=== PATIENT | male | born 1960 | race Hispanic/Latino ===

== ENCOUNTER 2018-03-02 17:19 | Emergency (ER) | payer BC | END 2018-03-02 17:40 | disposition short-term general hospital (02) | LOC: ER 17:19 | DX: Z95.1 Presence of aortocoronary bypass graft (principal) ==

== ENCOUNTER 2018-05-06 19:33 | Emergency (ER) | payer BC ==
[~2018-05-06] VITALS: Ht 170.2 cm; Wt 86.2 kg
[2018-05-06] MEDS ORDERED: PHENYLEPHRINE HCL 1% NA SPR 15 ML BTL ONE ×2 (19:41→19:45)
[2018-05-06 20:09] LABS: BASOPHILS # (AUTO) 0.1 (0.0-0.1); EOSINOPHILS # (AUTO) 0.4 (0.0-0.4); EOSINOPHILS % 3.4 % (0.0-6.0); HEMATOCRIT 38.4 % (38.2-49.6); HEMOGLOBIN 12.8 g/dL (14.0-18.0); LYMPHOCYTES # (AUTO) 4.7 (1.0-3.2); LYMPHOCYTES % 41.4 % (18.0-39.1); MEAN CORPUSCULAR HGB CONC 33.3 g/dL (31-35); MEAN CORPUSCULAR VOLUME 89.9 fL (81-99); MONOCYTES # (AUTO) 0.9 (0.2-0.8); MONOCYTES % 7.8 % (4.4-11.3); NEUTROPHILS # (AUTO) 5.3 (2.1-6.9); NEUTROPHILS % 46.2 % (38.7-80.0); PLATELET COUNT 211 x10e3/uL (140-360); RED BLOOD COUNT 4.27 x10e6/uL (4.3-5.7); RED CELL DISTRIBUTION WIDTH 13.8 % (11.7-14.4)
[2018-05-06 20:18] LABS: INR 1.15; PARTIAL THROMBOPLASTIN TIME 26.2 seconds (23.8-35.5); PROTHROMBIN TIME 13.8 seconds (11.9-14.5)
[2018-05-06 20:28] LABS: ALANINE AMINOTRANSFERASE 43 IU/L (0-55); ALBUMIN 3.9 g/dL (3.5-5.0); ALBUMIN/GLOBULIN RATIO 0.9 (0.8-2.0); ALKALINE PHOSPHATASE 104 IU/L (40-150); ANION GAP 16.9 mmol/L (8-16); BLOOD UREA NITROGEN 8 mg/dL (7-26); BUN/CREATININE RATIO 12 (6-25); CALCIUM 9.4 mg/dL (8.4-10.2); CARBON DIOXIDE 18 mmol/L (22-29); CHLORIDE 108 mmol/L (98-107); CREATINE KINASE 70 IU/L (30-200); CREATININE, SERUM 0.69 mg/dL (0.72-1.25); EST GLOMERULAR FILTRATION RATE > 60 ML/MIN (60-); GLUCOSE 97 mg/dL (74-118); POTASSIUM 3.9 mmol/L (3.5-5.1); SODIUM 139 mmol/L (136-145)
[2018-05-06] MEDS ORDERED: POTASSIUM40 MEQ/15 PO (20:40)
[2018-05-06] MEDS ORDERED: TYLENOL WITH C1 EACH PO (20:40)
[2018-05-06] MEDS ORDERED: ATORVASTATIN CA20 MG PO (20:40)
[2018-05-06] MEDS ORDERED: LISINOPRIL2.5 MG PO (20:40)
[2018-05-06] MEDS ORDERED: ULTRAM 50MG50 MG PO (20:40)
[2018-05-06] MEDS ORDERED: ASPIR 8181 MG PO (20:40)
[2018-05-06] MEDS ORDERED: CLOPIDOGREL75 MG PO (20:40)
[2018-05-06] MEDS ORDERED: METOPROLOL TART50 MG PO (20:40)
[2018-05-06] MEDS ORDERED: FUROSEMIDE40 MG PO (20:40)
[2018-05-06] MEDS ORDERED: PANTOPRAZOLE SO40 MG PO (20:40)
[2018-05-06] MEDS ORDERED: BACITRACIN ZINC 0.9GM TP ONE (21:09)
[2018-05-06 21:39] LABS: HEMATOCRIT 37.4 % (38.2-49.6); HEMOGLOBIN 12.9 g/dL (14.0-18.0)
[2018-05-06 22:39] VITALS: BP 125/71
== END 2018-05-06 22:41 | disposition other institution (70) ==
LOC: ER 19:33
DX: R04.0 Epistaxis (principal); I10 Essential (primary) hypertension; E78.5 Hyperlipidemia, unspecified; Z79.82 Long term (current) use of aspirin; Z79.01 Long term (current) use of anticoagulants; Z95.1 Presence of aortocoronary bypass graft
CPT/HCPCS: 36415; 80053; 80320; 82550; 82553; 84484; 85014; 85018; 85025; 85610; 85730; 86850; 86900; 93005; 99284

== ENCOUNTER → 2020-06-09 | Day surgery (SDC) | payer OTHER ==
[2020-05-15 15:48] LABS: BASOPHILS # (AUTO) 0.1 (0.0-0.1); BASOPHILS % 1.2 % (0.0-1.0); EOSINOPHILS # (AUTO) 0.3 (0.0-0.4); EOSINOPHILS % 3.4 % (0.0-6.0); HEMOGLOBIN 13.6 g/dL (14.0-18.0); LYMPHOCYTES # (AUTO) 2.5 (1.0-3.2); LYMPHOCYTES % 29.8 % (18.0-39.1); MEAN CORPUSCULAR HEMOGLOBIN 33.5 pg (28-32); MEAN CORPUSCULAR HGB CONC 33.2 g/dL (31-35); MONOCYTES % 11.8 % (4.4-11.3); NEUTROPHILS # (AUTO) 4.4 (2.1-6.9); NEUTROPHILS % 53.6 % (38.7-80.0); PLATELET COUNT 105 x10e3/uL (140-360); RED BLOOD COUNT 4.06 x10e6/uL (4.3-5.7); RED CELL DISTRIBUTION WIDTH 16.2 % (11.7-14.4)
[~2020-06-09] MED LIST: ASPIR 8181 MG PO; ATORVASTATIN CA20 MG PO; BENICAR20 MG PO; CLOPIDOGREL75 MG PO; ETOMIDATE 2 MG/ML 10 ML INJ IV ONE; FUROSEMIDE40 MG PO; HYOSCYAMINE 0.125 MG TAB ONE; LIDOCAINE HCL 2% LOCAL INJ 5 ML SDV VIAL INJ ONE; LISINOPRIL2.5 MG PO; METOPROLOL TART50 MG PO; PANTOPRAZOLE SO40 MG PO; POTASSIUM40 MEQ/15 PO; PROPOFOL IV EMULSION 10 MG/ML 20 ML VIAL ONE; TYLENOL WITH C1 EACH PO; ULTRAM 50MG50 MG PO
[2020-06-09 15:35] VITALS: BP 139/87
[2020-06-09 16:05] LABS: BASOPHILS # (AUTO) 0.1 (0.0-0.1); EOSINOPHILS # (AUTO) 0.2 (0.0-0.4); EOSINOPHILS % 3.4 % (0.0-6.0); HEMATOCRIT 39.6 % (38.2-49.6); HEMOGLOBIN 13.1 g/dL (14.0-18.0); LYMPHOCYTES # (AUTO) 2.1 (1.0-3.2); LYMPHOCYTES % 33.9 % (18.0-39.1); MEAN CORPUSCULAR HEMOGLOBIN 33.9 pg (28-32); MEAN CORPUSCULAR HGB CONC 33.1 g/dL (31-35); MEAN CORPUSCULAR VOLUME 102.3 fL (81-99); MONOCYTES # (AUTO) 0.6 (0.2-0.8); MONOCYTES % 9.2 % (4.4-11.3); NEUTROPHILS # (AUTO) 3.2 (2.1-6.9); NEUTROPHILS % 52.3 % (38.7-80.0); PLATELET COUNT 103 x10e3/uL (140-360); RED BLOOD COUNT 3.87 x10e6/uL (4.3-5.7)
[2020-06-09 16:28] LABS: ALANINE AMINOTRANSFERASE 115 IU/L (0-55); ALBUMIN 2.9 g/dL (3.5-5.0); ALBUMIN/GLOBULIN RATIO 0.6 (0.8-2.0); ALKALINE PHOSPHATASE 128 IU/L (40-150); ANION GAP 13.6 mmol/L (8-16); BLOOD UREA NITROGEN 11 mg/dL (7-26); BUN/CREATININE RATIO 15 (6-25); CALCIUM 8.7 mg/dL (8.4-10.2); CARBON DIOXIDE 22 mmol/L (22-29); CHLORIDE 110 mmol/L (98-107); CREATININE, SERUM 0.75 mg/dL (0.72-1.25); EST GLOMERULAR FILTRATION RATE > 60 ML/MIN (60-); GLUCOSE 123 mg/dL (74-118); POTASSIUM 4.6 mmol/L (3.5-5.1); SODIUM 141 mmol/L (136-145)
--- NOTE | 2020-06-09 16:39 | Operative Report ---
DATE OF PROCEDURE: 06/09/2020 SURGEON: Adis Castellano MD PROCEDURE: Colonoscopy with polypectomy. INDICATIONS FOR COLONOSCOPY: Colorectal cancer screening. MEDICATIONS: The patient was done under MAC, please see anesthesiologist's note. PROCEDURE IN DETAIL: With the patient in left lateral decubitus position, a flexible fiberoptic Olympus colonoscope was inserted into the rectum with ease and advanced all the way to the cecum. An approximately 8 mm sessile polyp was noted in the cecal pouch, that was removed per hot snare polypectomy and site was hemoclipped x2. The scope was then withdrawn slowly and two polyps in the proximal ascending colon each about 1 cm in size, both were sessile, there were removed per hot snare polypectomy and polypectomy sites were hemoclipped. The rest of the ascending and the transverse appeared to be within normal limits. In the descending colon 4 polyps were hot biopsied and one polyp was hot snared. In the sigmoid colon 3 polyps were hot biopsied, one approximately 1 cm polyp, sessile was removed per hot snare polypectomy and site was hemoclipped x2. Three minute polyps were hot biopsied from the proximal rectum. There was a nodular raised area in the distal rectum and that was hot biopsied. The scope was then retroflexed into the distal rectum and moderate-sized internal hemorrhoids were noted, none of which was actively bleeding. The scope was then straightened out, it was subsequently withdrawn. The patient tolerated the procedure well. IMPRESSION: 1. Cecal polyp approximately 8 mm in size, sessile, hot snared and site hemoclipped x2. 2. Ascending colon polyps x2, 1 cm in size, a piece sessile, both removed per hot snare polypectomy and both polypectomy sites were hemoclipped. 3. Descending colon, 4 polyps were hot biopsied, and one polyp was hot snared. 4. In the sigmoid colon, 3 polyps were hot biopsied and one polyp was hot snared, and site was hemoclipped x2. 5. Rectum, three polyps, hot biopsied. Raised focal nodular area, distal rectum, hot biopsied. 6. Internal hemorrhoids, none actively bleeding. PLAN: 1. Follow up histology. 2. Initiate high-fiber, low-fat diet. 3. Initiate high-fiber supplement. 4. A total of 15 polyps were removed. 5. The patient will need a followup colonoscopy in 1 year. MD SARAH Lemon/HANNYL /[id number] cc: Gadiel Cox DO
== END | disposition home or self-care (01) ==
LOC: OR 10:43
PROVIDERS: ATTEND Internal Medicine Gastroenterology
DX: Z12.11 Encounter for screening for malignant neoplasm of colon (principal); D12.0 Benign neoplasm of cecum; D12.2 Benign neoplasm of ascending colon; K62.1 Rectal polyp; K62.89 Other specified diseases of anus and rectum; K64.8 Other hemorrhoids; K21.9 Gastro-esophageal reflux disease without esophagitis; I10 Essential (primary) hypertension; I25.810 Atherosclerosis of coronary artery bypass graft(s) without angina pectoris; E78.2 Mixed hyperlipidemia; Z72.0 Tobacco use; Z01.810 Encounter for preprocedural cardiovascular examination; Z01.812 Encounter for preprocedural laboratory examination; Z11.59 Encounter for screening for other viral diseases; Z79.02 Long term (current) use of antithrombotics/antiplatelets; Z79.82 Long term (current) use of aspirin; Z68.32 Body mass index [BMI] 32.0-32.9, adult; Z86.19 Personal history of other infectious and parasitic diseases; Z95.1 Presence of aortocoronary bypass graft
CPT/HCPCS: 36415; 45378; 45384; 45385; 80053; 85025; 93005; J2001; U0002

== ENCOUNTER 2020-06-16 13:32 | Inpatient (IN) | payer OTHER ==
[~2020-06-16] VITALS: Ht 170.2 cm; Wt 91.6 kg
[~2020-06-16 13:32] MED LIST changes: -ETOMIDATE 2 MG/ML 10 ML INJ IV ONE; -HYOSCYAMINE 0.125 MG TAB ONE; -LIDOCAINE HCL 2% LOCAL INJ 5 ML SDV VIAL INJ ONE; -PROPOFOL IV EMULSION 10 MG/ML 20 ML VIAL ONE
[2020-06-16] MEDS ORDERED: SODIUM CHLORIDE 0.9% 1000ML 1,000 ML IV STA (13:55)
[2020-06-16] MEDS ORDERED: PANTOPRAZOLE 40 MG 10ML VIAL IV STA (13:55)
[2020-06-16] MEDS ORDERED: ONDANSETRON HCL INJ 2MG/ML 2ML 2 MG/ML VIAL IV ONE (14:00)
[2020-06-16] MEDS ORDERED: FUROSEMIDE INJ 10 MG/ML 2 ML VIAL IV ONE ×2 (14:00→22:30)
[2020-06-16] MEDS ORDERED: DIPHENHYDRAMINE HCL INJ 50 MG/ML VIAL IV ONE ×2 (14:00→22:30)
[2020-06-16] MEDS ORDERED: ACETAMINOPHEN 325 MG TAB PO ONE ×2 (14:00→22:30)
--- NOTE | 2020-06-16 14:07 | Emergency Department Note ---
History of Present Illnes History of Present Illness Chief Complaint: General Medicine Complaints History of Present Illness This is a 59 year old male on Plavix, c/p colonoscopy 7 days ago c/o BRBPR, look pales, BP 95/51 on arrival. He had many polyps removal during the colonoscopy. He took one dose of Plavix yesterday Past Medical History Hypertension, Hyperlipedemia Past Surgical History: Appendectomy, CABG Other Surgery FOOT SX Arrival Mode: Car Emergency Room Rn Required: No Onset (how long ago): hour(s) Radiation: Reports non-radiation Severity: moderate Onset quality: sudden Duration (how long): hour(s) Timing of current episode: intermittent Progression: waxing and waning Chronicity: new Relieving factors: none Exacerbating factors: none Associated symptoms: Reports other Treatments prior to arrival: none Past Medical/Family History Physician Review I have reviewed the patient's past medical and family history. Any updates have been documented here. Past Medical History Recent Fever: No Clinical Suspicion of Infectio: No New/Unexplained Change in Ment: No Past Medical History: Hypertension, Hyperlipedemia Other Medical History: Past Medical History Hypertension, Hyperlipedemia Past Surgical History: Appendectomy, CABG Other Surgery FOOT SX Past Surgical History: Appendectomy, CABG Other Surgery: FOOT SX Social History Smoking Cessation: Never Smoker Counseling Performed: No Alcohol Use: Social Any Illegal Drug Use: No TB Exposure/Symptoms: No Physically hurt or threatened: No Family History Family history of heart diseas: No Other Last Tetanus: UTD Review of Systems Review of Systems Constitutional: Reports no symptoms EENTM: Reports no symptoms Cardiovascular: Reports no symptoms Respiratory: Reports no symptoms Gastrointestinal: Reports as per HPI Genitourinary: Reports no symptoms Musculoskeletal: Reports no symptoms Integumentary: Reports no symptoms Neurological: Reports weakness Psychological: Reports no symptoms Endocrine: Reports no symptoms Hematological/Lymphatic: Reports no symptoms Physical Exam Related Data Allergies: Coded Allergies: No Known Allergies (Unverified , 05/06/18) Physical Exam CONSTITUTIONAL Constitutional: Present well-developed, Present well-nourished, Present diaphoretic, Present other (looks pale) HENT HENT: Present normocephalic, Present atraumatic, Present oropharynx clear/moist, Present nose normal HENT L/R: Present left ext ear normal, Present right ext ear normal EYES Eyes: Reports PERRL, Reports conjunctivae normal NECK Neck: Present ROM normal PULMONARY Pulmonary: Present effort normal, Present breath sounds normal CARDIOVASCULAR Cardiovascular: Present regular rhythm, Present heart sounds normal, Present capillary refill normal, Present normal rate GASTROINTESTINAL Abdominal: Present soft, Present nontender, Present bowel sounds normal, Present other (rectal exam: red frothy stool, positive blood. ) GENITOURINARY Genitourinary: Present exam deferred SKIN Skin: Present warm, Present dry MUSCULOSKELETAL Musculoskeletal: Present ROM normal NEUROLOGICAL Neurological: Present alert, Present oriented x 3, Present no gross motor or sensory deficits PSYCHOLOGICAL Psychological: Present mood/affect normal, Present judgement normal Results Laboratory Laboratory HGB 8.9 Lab results reviewed: Yes Critical Care Time Total Critical Care Time (min): 45 Time ED Physician saw patient: 14:05 Critical care time exclusive o: treating other patients Critcal care necessary due to: shock, other (CC for acute lower GI bleeding with hypovolemic shock, tx with IV fluid, PPI blood transfusion. ) Critcal care time spent by me: develop tx plan w patient/surrogate, discussion w consultants, discussion w primary provider, evaluation patient response to tx, examination of patient, obtaining hx from patient/surrogate, order/perform tx or interventions, order/review laboratory studies, pulse oximetry, review of old charts Assessment & Plan Medical Decision Making MDM post polypectomy bleeding. hypovolemic shock due to excessive bleeding. Reassessment Reassessment time: 15:36 Reassessment still bleeding on the toilet Assessment & Plan Final Impression: (1) Hemorrhagic shock (2) Anemia due to acute blood loss (3) Lower GI hemorrhage Depart Disposition: ADMITTED Home Meds Reported Medications Olmesartan Medoxomil (BENICAR) 20 Mg Tablet, 5 MG PO DAILY, #30 TAB 05/12/20 Pantoprazole Sodium* (PROTONIX) 40 Mg Tablet.dr, 40 MG PO DAILY, TAB 05/06/18 Clopidogrel Bisulfate (CLOPIDOGREL) 75 Mg Tablet, 75 MG PO DAILY, #30 TAB 05/06/18 Atorvastatin Calcium (ATORVASTATIN CALCIUM) 20 Mg Tablet, 40 MG PO HS, #30 TAB 05/06/18 Aspirin (ASPIR 81) 81 Mg Tablet.dr, 81 MG PO DAILY 05/06/18 Metoprolol Tartrate (METOPROLOL TARTRATE) 50 Mg Tablet, 25 MG PO DAILY, TAB 05/06/18 Medications in the ED Ondansetron HCl 4 mg ONCE ONCE IV ; Start 06/16/20 at 14:00; Stop 06/16/20 at 14:01 Pantoprazole Sodium 40 mg NOW STAT IV ; Start 06/16/20 at 13:55; Stop 06/16/20 at 13:56 Sodium Chloride 1,000 ml @ 0 mls/hr Q0M STAT IV ; Start 06/16/20 at 13:55; Stop 06/16/20 at 14:00; Status DC Acetaminophen 650 mg ONCE ONCE PO ; Start 06/16/20 at 14:00; Stop 06/16/20 at 14:01 Diphenhydramine HCl 25 mg NOW ONCE IV ; Start 06/16/20 at 14:00; Stop 06/16/20 at 14:01; Status UNV Furosemide 20 mg ONCE ONCE IV ; Start 06/16/20 at 14:00; Stop 06/16/20 at 14:01; Status UNV Physician Attestation Provider Attestation Case discussed with Dr Misti Alves and Dr Bing Castellano. Dr Bing Castellano asked for GS Dr Karan Black consult. RYANNE MYLES MD Jun 16, 2020 14:07
[2020-06-16] MEDS ORDERED: SODIUM CHLORIDE 0.9% 1000ML 1,000 ML ONE (14:23)
[2020-06-16] MEDS ORDERED: PANTOPRAZOL 40MG/SOD CHL 0.9% 50 ML IV ONE (14:23)
[2020-06-16] MEDS ORDERED: ONDANSETRON HCL INJ 2MG/ML 2ML 2 MG/ML VIAL ONE (14:23)
--- OUTSIDE RECORDS SUMMARY | 2020-06-16 15:12 | XMS REPORT | Continuity of Care Document ---
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 coronary artery showed a small vessel that is not suitable for bypass. At that point, the first diagonal coronary artery was identified and opened longitudinally. The vessel was noted to be suitable for bypass admitting a 1.5mm dilator. A saphenous vein segment was fashioned end-to side to the arteriotomy made in this vessel and the anastomosis was completed using a running # 7/0 Prolene suture. Following the completion of this anastomosis, the left anterior descending coronary artery was identified and opened. The vessel was noted to be suitable for bypass admitting a 1.5mm dilator. The left internal mammary artery was fashioned end-to side to the arteriotomy made in the left anterior descending coronary artery and the anastomosis was completed using a running # 8/0 Prolene suture. One small aortotomy was made in the ascending aorta to which the saphenous vein graft to the first diagonal coronary artery was sutured in an end-to-side fashion using a running # 6/0 Prolene suture. The heart chambers were filled with blood. Any potential air was evacuated via the antegrade aortic cardioplegia cannula. The patient was placed in the head-down position and the aortic cross-clamp released. The heart was defibrillated to a normal sinus rhythm. Having demonstrated satisfactory rate and rhythm the head was slowly elevated to the horizontal position. Rewarming continued to a nasopharyngeal and bladder temperature of 36.0C. After demonstrating satisfactory blood pressure, rhythm and heart rate the patient was weaned from cardiopulmonary bypass. The aortic and vena caval cannulae were removed. Protamine sulfate was administered to rev erse the anti-coagulated state. Temporary epicardial pacing wires were placed on the right ventricular outflow tract. One #40 chest tube was placed in the mediastinum and one # 28 right angle chest tube was placed in the left pleural space for drainage. The chest was closed with interrupted #6 stainless steel surgical wires on the sternum, running #l PDS plus on the muscular fascia and running # 3/0 Monocryl suture for the skin. The patient tolerated the procedure well, was extubated in the operating room and was taken to the ICU in stable condition. Sponge, needle and instrument counts x4 were correct. I was present for all elements of this operation that included performing all distal and proximal anastomoses of the coronary arteries, including the left internal mammary artery to the left anterior descending coronary arteries. I weaned the patient from cardiopulmonary bypass and closed the incision. Elmer Rockwell M.D. Extracted from:Title: [facility] ICU Addendum Author: Dallin Awan MD Date: 02/21/18 Impression and Plan Extracted from:Title: [facility] STS Heart Surgery Admission H&P Note Author: Dexter Marie MD Date: 02/20/18 Impression and Plan 57M with stemi OSH s/p cath transfferd f or CABG - plan for cabg with Dr. Rockwell in AM - NPO labs CXR consent in chart booked. STS Calculated Risk Score: Refer to: http://riskcalc.sts.org/ Does this patient meet criteria for Multidisciplinary Conference (STS Risk Score >4%): _ Yes _ No _ N/A 02/26/2018 [facility] Plan of Care No Data Provided for This Section Social History Social History Date Source Social History TypeResponse Alcohol Current, Type Beer. Frequency: 3-5 times per week. Previous treatment: None. Alcohol use interferes with work or home: No. Drinks more than intended: No. Others hurt by drinking: No. Ready to change: No. Household alcohol concerns: No. Smoking Status Current every day smoker; Type: Cigarettes; Previous treatment: None; Ready to change: Yes; Concerns about tobacco use in household: Yes; Exposure to Tobacco Smoke None; Exposed at work; Lives with someone who smokes; Cigarette Smoking Last 365 Days Yes; Reg Smoking Cessation Counseling Yes; Number of years: 45; Total pack years: 170; Started at age: 13.0; Stopped at age: 57; entered on: 02/22/18 02/21/2018 [facility] Social History TypeResponse Alcohol Current, Type Beer. Frequency: 3-5 times per week. Previous treatment: None. Alcohol use interferes with work or home: No. Drinks more than intended: No. Others hurt by drinking: No. Ready to change: No. Household alcohol concerns: No. Smoking Status Current every day smoker; Type: Cigarettes; Previous treatment: None; Ready to change: Yes; Concerns about tobacco use in household: Yes; Exposure to Tobacco Smoke None; Exposed at work; Lives with someone who smokes; Cigarette Smoking Last 365 Days Yes; Reg Smoking Cessation Counseling Yes; Number of years: 45; Total pack years: 170; Started at age: 13.0; Stopped at age: 57; entered on: 12/27/18 02/21/[address] [facility] Social History TypeResponse Alcohol Current, Type Beer. Frequency: 3-5 times per week. Previous treatment: None. Alcohol use interferes with work or home: No. Drinks more than intended: No. Others hurt by drinking: No. Ready to change: No. Household alcohol concerns: No. Smoking Status Current every day smoker; Type: Cigarettes; Previous treatment: None; Ready to change: Yes; Concerns about tobacco use in household: Yes; Exposure to Tobacco Smoke None; Exposed at work; Lives with someone who smokes; Cigarette Smoking Last 365 Days Yes; Reg Smoking Cessation Counseling Yes; Number of years: 45; Total pack years: 170; Started at age: 13.0; Stopped at age: 57; entered on: 02/22/18 02/21/2018 [facility] Family History No Data Provided for This Section Advance Directives No Data Provided for This Section Functional Status No Data Provided for This Section
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
--- OUTSIDE RECORDS SUMMARY | 2020-06-16 15:13 | XMS REPORT | Summary of Care ---
Author Author [facility] Organization [facility] Address Unknown Phone Unavailable Encounter JAY Moon(PAUL) [id number] Date(s): 02/20/18 - 02/20/18 [facility] [address] [place] [address]- [phone] Discharge Disposition: Other Healthcare Facility Attending Physician: Jose A Cox DO Admitting Physician: Jose A Cox DO Vital Signs 1 2 3 Most recent to oldest [Reference Range]: 170.18 cm (02/20/18 3:06 PM) 170.18 cm (02/20/18 10:35 AM) Height 98 DegF (02/20/18 8:00 PM) 97.7 DegF (02/20/18 3:17 PM) 97.9 DegF (02/20/18 2:15 PM) Temperature Oral [96.4-99.1 DegF] 134/93 mmHg (02/20/18 9:00 PM) 134/93 mmHg (02/20/18 8:45 PM) 147/94 mmHg *HI* (02/20/18 8:30 PM) Blood Pressure [90-140/60-90 mmHg] 12 BRMIN *LOW* (02/20/18 9:34 PM) 11 BRMIN *LOW* (02/20/18 9:00 PM) 13 BRMIN *LOW* (02/20/18 8:45 PM) Respiratory Rate [14-20 BRMIN] 88 bpm (02/20/18 10:35 AM) Peripheral Pulse Rate [60-100 bpm] 92.1 kg (02/20/18 3:06 PM) 98.3 kg (02/20/18 10:35 AM) Weight 31.8 m2 (02/20/18 3:06 PM) 33.94 m2 (02/20/18 10:35 AM) Body Mass Index Problem List No data available for this section Allergies, Adverse Reactions, Alerts Substance Reaction Severity Status NKDA Active Medications acetaminophen 650 mg, 2 tab, Route: PO, Drug form: TAB, Q4H, Dosing Weight 92.1, kg, PRN Pain Score 1-3, Start date: 02/20/18 18:32:00 CDT, Duration: 30 day, Stop date: 03/22 18:31:00 CDT Notes: Do not exceed 4 gm/day. (Same as: Tylenol) Start Date: 02/20/18 Stop Date: 02/20/18 Status: Discontinued acetaminophen-hydrocodone 325 mg-5 mg oral tablet 1 tab, Route: PO, Drug Form: TAB, Dosing Weight 92.1, kg, Q4H, PRN Pain Score 4- 6, Start date: 02/20/18 18:32:00 CDT, Duration: 30 day, Stop date: 03/22/18 18:3 1:00 CDT Notes: (Same as: [place] 325/5) Do not exceed 4gm/day of acetaminophen. Start Date: 02/20/18 Stop Date: 02/20/18 Status: Discontinued aspirin 324 mg, 4 tab, Route: CHEW, Drug form: CHEWTAB, ONCE, Dosing Weight 98.3, kg, Pr iority: STAT, Start date: 02/20/18 10:49:00 CDT, Stop date: 02/20/18 10:49:00 CD T Notes: Take with food. Start Date: 02/20/18 Stop Date: 02/20/18 Status: Completed aspirin 81 mg tablet, enteric coated 81 mg, 1 tab, Route: PO, Drug form: ECTAB, Daily, Dosing Weight 92.1, kg, Start date: 02/21/18 9:00:00 CDT, Duration: 30 day, Stop date: 03/22/18 9:00:00 CDT Notes: Do not crush or chew.(Same As: Ecotrin) Start Date: 02/21/18 Stop Date: 02/20/18 Status: Canceled Heparin - one time bolus for ACS 4,000 unit, 4 mL, Route: IVP, Drug form: INJ, ONCE, Dosing Weight 98.3, kg, Prio rity: STAT, Start date: 02/20/18 11:47:00 CDT, Stop date: 02/20/18 11:47:00 CDT Start Date: 02/20/18 Stop Date: 02/20/18 Status: Completed Heparin 30 unit/kg Bolus (Heparin Dosing Weight) Route: IVP, PRN, 2,300 unit, 2.3 mL, Drug form: INJ, PRN, Heparin Protocol, Star t date: 02/20/18 11:47:00 CDT Stop date: 03/22/18 11:46:00 CDT, 30 day Start Date: 02/20/18 Stop Date: 02/20/18 Status: Discontinued Heparin 30 unit/kg Bolus (Heparin Dosing Weight) Pharmacy To Manage, Route: IVP, PRN, Drug form: INJ, PRN, Heparin Protocol, Star t date: 02/20/18 18:33:00 CDT Stop date: 03/22/18 18:32:00 CDT, 30 day Start Date: 02/20/18 Stop Date: 02/20/18 Status: Discontinued Heparin 60 unit/kg Bolus (Heparin Dosing Weight) Route: IVP, PRN, 4,700 unit, 4.7 mL, Drug form: INJ, PRN, Heparin Protocol, Star t date: 02/20/18 11:47:00 CDT Stop date: 03/22/18 11:46:00 CDT, 30 day Start Date: 02/20/18 Stop Date: 02/20/18 Status: Discontinued Heparin 60 unit/kg Bolus (Heparin Dosing Weight) Pharmacy To Manage, Route: IVP, PRN, Drug form: INJ, PRN, Heparin Protocol, Star t date: 02/20/18 18:33:00 CDT Stop date: 03/22/18 18:32:00 CDT, 30 day Start Date: 02/20/18 Stop Date: 02/20/18 Status: Discontinued heparin additive 25,000 unit [12 unit/kg/hr] + Premix Diluent Dextrose 5% 500 mL 500 mL, Rate: 18.94 ml/hr, Infuse over: 26.4 hr, Route: IV, Dosing Weight 78.9 k g, Total Volume: 500 mL, Start date: 02/20/18 11:47:00 CDT, Duration: 30 day, St op date: 03/22/18 11:46:00 CDT, 1.95, m2 Start Date: 02/20/18 Stop Date: 02/20/18 Status: Discontinued heparin additive 25,000 unit [12 unit/kg/hr] + Premix Diluent Dextrose 5% 500 mL 500 mL, Rate: 22.1 ml/hr, Infuse over: 22.6 hr, Route: IV, Dosing Weight 92.1 kg , Total Volume: 500 mL, Start date: 02/20/18 18:33:00 CDT, Duration: 30 day, Sto p date: 03/22/18 18:32:00 CDT, 2.11, m2 Start Date: 02/20/18 Stop Date: 02/20/18 Status: Discontinued losartan PO, Daily, 0 Refill(s) Start Date: 02/20/18 Status: Suspended metoprolol tartrate BID, 0 Refill(s) Start Date: 02/20/18 Status: Suspended metoprolol tartrate 25 mg, 1 tab, Route: PO, Drug form: TAB, Q8H, Dosing Weight 92.1, kg, Start date : 02/20/18 18:32:00 CDT, Duration: 30 day, Stop date: 03/22/18 16:00:00 CDT Notes: (Same as: Lopressor) Start Date: 02/20/18 Stop Date: 02/20/18 Status: Discontinued morphine Sulfate 4 mg, 1 mL, Route: IVP, Drug form: SOLN, Q2H, Dosing Weight 92.1, kg, PRN Pain S core 7-10, Start date: 02/20/18 18:32:00 CDT, Duration: 30 day, Stop date: 03/22 18:31:00 CDT Notes: (Same as:MORPhine Sulfate) Start Date: 02/20/18 Stop Date: 02/20/18 Status: Discontinued NexIUM PO, Daily, 0 Refill(s) Start Date: 02/20/18 Status: Suspended nitroglycerin SL Tab 0.4 mg, 1 tab, Route: SL, Drug form: TAB, Q5Min, Dosing Weight 92.1, kg, PRN Rosina st Pain, Start date: 02/20/18 18:32:00 CDT, Duration: 3 doses or times, Stop paresh e: Limited # of times Notes: (Same as:Nitroquick, Nitrostat)"Do Not Crush" Sublingual tablet Start Date: 02/20/18 Stop Date: 02/20/18 Status: Discontinued Sodium Chloride 0.9% IV 750 mL 750 mL, Rate: 75 ml/hr, Infuse over: 10 hr, Route: IV, Dosing Weight 92.1 kg, To [place] Volume: 750, Start date: 02/20/18 18:32:00 CDT, Duration: 10 hr, Stop date: 02/21/18 4:31:00 CDT, 2.11, m2 Start Date: 02/20/18 Stop Date: 02/20/18 Status: Discontinued Results ELECTROLYTES Most recent to 1 2 oldest [Reference Range]: Sodium Lvl [135-145 139 mEq/L mEq/L] (02/20/18 10:53 AM) Potassium Lvl 4.1 mEq/L [3.5-5.1 mEq/L] (02/20/18 10:53 AM) Chloride Lvl [95-109 105 mEq/L mEq/L] (02/20/18 10:53 AM) CO2 [24-32 mEq/L] 25 mEq/L (02/20/18 10:53 AM) AGAP [10.0-20.0 13.1 mEq/L mEq/L] (02/20/18 10:53 AM) CHEM PANEL Most recent to 1 2 oldest [Reference Range]: Creatinine Lvl 0.90 mg/dL [0.50-1.40 mg/dL] (02/20/18 10:53 AM) eGFR 95 mL/min/1.73m2 1 *NA* (02/20/18 10:53 AM) BUN [7-22 mg/dL] 14 mg/dL (02/20/18 10:53 AM) B/C Ratio [6-25] 16 (02/20/18 10:53 AM) Glucose Lvl [70-99 121 mg/dL mg/dL] *HI* (02/20/18 10:53 AM) Total Protein 8.7 g/dL [6.4-8.4 g/dL] *HI* (02/20/18 10:53 AM) Albumin Lvl [3.5-5.0 3.9 g/dL g/dL] (02/20/18 10:53 AM) Globulin [2.7-4.2 4.8 g/dL g/dL] *HI* (02/20/18 10:53 AM) A/G Ratio [0.7-1.6] 0.8 (02/20/18 10:53 AM) Calcium Lvl 9.3 mg/dL [8.5-10.5 mg/dL] (02/20/18 10:53 AM) ALT [0-65 unit/L] 121 unit/L *HI* (02/20/18 10:53 AM) AST [0-37 unit/L] 129 unit/L *HI* (02/20/18 10:53 AM) Alk Phos [39-136 85 unit/L unit/L] (02/20/18 10:53 AM) Bili Total [0.2-1.3 1.0 mg/dL mg/dL] (02/20/18 10:53 AM) 1Result Comment: The eGFR is calculated using the [...] from the National Kidney Disease Education Program ( NKDEP) which additionally recommends that when the eGFR is used in patients with extremes of body mass index for purposes of drug dosing, the eGFR should be mul tiplied by the estimated BMI. CARDIAC ENZYMES Most recent to 1 2 oldest [Reference Range]: Total CK [12-191 116 unit/L unit/L] (02/20/18 10:53 AM) CK MB [0.5-3.6 1.1 ng/mL ng/mL] (02/20/18 10:53 AM) CK MB Index 0.9 [0.0-2.5] (02/20/18 10:53 AM) Troponin-I 0.62 ng/mL 1 [0.00-0.40 ng/mL] *CRIT* (02/20/18 10:53 AM) 1Result Comment: Critical Result(s) called to russell at _02/20/2018 11:38 by_LL. Read back OK. HEMATOLOGY Most recent to 1 2 oldest [Reference Range]: WBC [3.7-10.4 K/CMM] 11.0 K/CMM 10.7 K/CMM *HI* *HI* (02/20/18 7:40 PM) (02/20/18 10:53 AM) RBC [4.70-6.10 4.44 M/CMM 4.73 M/CMM M/CMM] *LOW* (02/20/18 10:53 AM) (02/20/18 7:40 PM) Hgb [14.0-18.0 g/dL] 14.8 g/dL 16.4 g/dL (02/20/18 7:40 PM) (02/20/18 10:53 AM) Hct [42.0-54.0 %] 42.4 % 44.9 % (02/20/18 7:40 PM) (02/20/18 10:53 AM) MCV [80.0-94.0 fL] 95.6 fL 94.9 fL *HI* *HI* (02/20/18 7:40 PM) (02/20/18 10:53 AM) MCH [27.0-31.0 pg] 33.2 pg 34.7 pg *HI* *HI* (02/20/18 7:40 PM) (02/20/18 10:53 AM) MCHC [32.0-36.0 34.8 g/dL 36.6 g/dL g/dL] (02/20/18 7:40 PM) *HI* (02/20/18 10:53 AM) RDW [11.5-14.5 %] 13.6 % 13.7 % (02/20/18 7:40 PM) (02/20/18 10:53 AM) MPV [7.4-10.4 fL] 9.3 fL 9.2 fL (02/20/18 7:40 PM) (02/20/18 10:53 AM) Platelet [133-450 184 K/CMM 188 K/CMM K/CMM] (02/20/18 7:40 PM) (02/20/18 10:53 AM) Segs [45.0-75.0 %] 50.9 % 56.6 % (02/20/18 7:40 PM) (02/20/18 10:53 AM) Lymphocytes 36.5 % 31.6 % [20.0-40.0 %] (02/20/18 7:40 PM) (02/20/18 10:53 AM) Monocytes [2.0-12.0 7.7 % 7.1 % %] (02/20/18 7:40 PM) (02/20/18 10:53 AM) Eosinophils [0.0-4.0 3.5 % 3.3 % %] (02/20/18 7:40 PM) (02/20/18 10:53 AM) Basophils [0.0-1.0 1.4 % 1.4 % %] *HI* *HI* (02/20/18 7:40 PM) (02/20/18 10:53 AM) Segs-Bands # 5.6 K/CMM 6.1 K/CMM [1.5-8.1 K/CMM] (02/20/18 7:40 PM) (02/20/18 10:53 AM) Lymphocytes # 4.0 K/CMM 3.4 K/CMM [1.0-5.5 K/CMM] (02/20/18 7:40 PM) (02/20/18 10:53 AM) Monocytes # [0.0-0.8 0.8 K/CMM 0.8 K/CMM K/CMM] (02/20/18 7:40 PM) (02/20/18 10:53 AM) Eosinophils # 0.4 K/CMM 0.4 K/CMM [0.0-0.5 K/CMM] (02/20/18 7:40 PM) (02/20/18 10:53 AM) Basophils # [0.0-0.2 0.2 K/CMM 0.1 K/CMM K/CMM] (02/20/18 7:40 PM) (02/20/18 10:53 AM) PT [12.0-14.7 16.5 seconds 14.6 seconds seconds] *HI* (02/20/18 10:53 AM) (02/20/18 7:40 PM) INR [0.85-1.17] 1.32 1.14 *HI* (02/20/18 10:53 AM) (02/20/18 7:40 PM) PTT [22.9-35.8 189.0 seconds 1 28.5 seconds seconds] *CRIT* (02/20/18 10:53 AM) (02/20/18 7:40 PM) 1Result Comment: Critical Result(s) called to Javed Segura [id number] _ by_JJ. Read back OK. BACTERIAL - SEROLOGY Most recent to 1 2 oldest [Reference Range]: MRSA by PCR Negative (02/20/18 3:04 PM) Immunizations No data available for this section Procedures Procedure Date Related Diagnosis Body Site Status Appendectomy Completed Operation1 Completed 10/27/2013 Social History Social [...] Stopped at age: 57; entered on: 02/22/18 Assessment and Plan No data available for this section
--- OUTSIDE RECORDS SUMMARY | 2020-06-16 15:13 | XMS REPORT | Summary of Care ---
Author Author [facility] Organization [facility] Address Unknown Phone Unavailable Encounter [facility] Meli_wu(APUL) [id number] Date(s): 02/20/18 - 02/20/18 [facility] [address] [employer] provided by [facility] [place] [address]- Attending Physician: Elmer Rockwell MD Admitting Physician: Elmer Rockwell MD Referring Physician: Jose A Cox DO Vital Signs No data available for this section Problem List No data available for this section Allergies, Adverse Reactions, Alerts Substance Reaction Severity Status NKDA Active Medications No data available for this section Results No data available for this section [...]
--- OUTSIDE RECORDS SUMMARY | 2020-06-16 15:13 | XMS REPORT | Summary of Care ---
Author Author [facility] Organization [facility] Address Unknown Phone Unavailable Encounter JAY Moon(PAUL) [id number] Date(s): 02/20/18 - 02/26/18 [facility] [address] [employer] provided by [employer] [place] [address]- Discharge Disposition: Home or Self Care Attending Physician: Elmer Rockwell MD Admitting Physician: Elmer Rockwell MD Referring Physician: Jose A Cox DO Vital Signs 1 2 3 Most recent to oldest [Reference Range]: 170.18 cm (02/21/18 7:47 PM) 170.18 cm (02/21/18 4:00 PM) 170.18 cm (02/21/18 12:48 PM) Height 93.682 kg (02/26/18 6:31 AM) Current Weight 98.8 DegF (02/26/18 7:00 AM) 99.0 DegF (02/26/18 4:00 AM) 100.0 DegF *HI* (02/26/18 12:00 AM) Temperature Oral [96.4-99.1 DegF] 101/58 mmHg (02/26/18 10:00 AM) 115/67 mmHg (02/26/18 8:00 AM) 117/64 mmHg (02/26/18 7:00 AM) Blood Pressure [90-140/60-90 mmHg] 20 BRMIN (02/26/18 10:00 AM) 18 BRMIN (02/26/18 9:00 AM) 18 BRMIN (02/26/18 8:00 AM) Respiratory Rate [14-20 BRMIN] 95.455 kg (02/20/18 10:03 PM) Weight 32.96 m2 (02/20/18 10:03 PM) Body Mass Index Problem List No data available for this section Allergies, Adverse Reactions, Alerts Substance Reaction Severity Status NKDA Active Medications acetaminophen 650 mg, 2 tab, Route: PO, Drug form: TAB, Q4H, Dosing Weight 95.455, kg, PRN José Luis n 1-3/Temp > 100.4 F, Start date: 02/21/18 13:30:00 CDT, Duration: 30 day, Stop date: 03/23/18 13:29:00 CDT Notes: Do not exceed 4 gm/day. (Same as: Tylenol) Start Date: 02/21/18 Stop Date: 02/26/18 Status: Discontinued acetaminophen-codeine 300 mg-30 mg oral tablet 1 - 2 tab, PO, Q4H, PRN Pain, X 7 day, # 50 tab, 0 Refill(s) Start Date: 02/26/18 Stop Date: 03/05/18 Status: Ordered acetaminophen-hydrocodone 325 mg-10 mg oral tablet 1 tab, Route: PO, Drug Form: TAB, Dosing Weight 95.455, kg, Q4H, PRN Pain Score 1-3, Start date: 02/21/18 13:30:00 CDT, Duration: 30 day, Stop date: 03/23/18 13 :29:00 CDT Notes: Do not exceed 4gm/day of acetaminophen. (Same as: Cooper 325/10) Start Date: 02/21/18 Stop Date: 02/22/18 Status: Discontinued acetaminophen-hydrocodone 325 mg-10 mg oral tablet 2 tab, Route: PO, Drug Form: TAB, Dosing Weight 95.455, kg, Q4H, PRN Pain Score 4-6, Start date: 02/21/18 13:30:00 CDT, Duration: 30 day, Stop date: 03/23/18 13 :29:00 CDT Notes: Do not exceed 4gm/day of acetaminophen. (Same as: Cooper 325/10) Start Date: 02/21/18 Stop Date: 02/22/18 Status: Discontinued albumin human 5% intravenous solution 12.5 gm, 250 mL, Route: IV, Drug Form: INJ, Dosing Weight 95.455, kg, ONCE, Star t date: 02/21/18 15:06:00 CDT, Stop date: 02/21/18 15:06:00 CDT Notes: LOT#: Mfg: WASTE: F/P - Red; E -Red (Same a s: Albuminar)"blood product derivative" Start Date: 02/21/18 Stop Date: 02/21/18 Status: Completed aspirin 300 mg rectal suppository 300 mg, 1 supp, Route: OR, Drug form: SUPP, ONCE, Dosing Weight 95.455, kg, Star t date: 02/21/18 13:30:00 CDT, Stop date: 02/21/18 13:30:00 CDT Notes: Refrigerate. Start Date: 02/21/18 Stop Date: 02/21/18 Status: Completed aspirin 81 mg tablet, enteric coated 162 mg, 2 tab, Route: PO, Drug form: ECTAB, Daily, Dosing Weight 95.455, kg, Sta rt date: 02/22/18 9:00:00 CDT, Duration: 30 day, Stop date: 03/23/18 9:00:00 CDT Notes: Do not crush or chew.(Same As: Ecotrin) Start Date: 02/22/18 Stop Date: 02/26/18 Status: Discontinued aspirin 81 mg tablet, enteric coated 162 mg = 2 tab, PO, Daily, # 60 tab, 0 Refill(s) Start Date: 02/26/18 Stop Date: 03/28/18 Status: Ordered atorvastatin 40 mg, 1 tab, Route: PO, Drug form: TAB, Bedtime, Dosing Weight 95.455, kg, Star t date: 02/22/18 21:00:00 CDT, Duration: 30 day, Stop date: 03/23/18 21:00:00 CD T Notes: (Same as: Lipitor) Start Date: 02/22/18 Stop Date: 02/26/18 Status: Discontinued atorvastatin 40 mg oral tablet 40 mg = 1 tab, PO, Bedtime, # 30 tab, 0 Refill(s) Start Date: 02/26/18 Stop Date: 03/28/18 Status: Ordered calcium carbonate 500 mg (200 mg elemental calcium) oral tablet 500 mg, 1 tab, Route: PO, Drug form: CHEWTAB, PRN, Dosing Weight 95.455, kg, PRN Abnormal Lab Result, FOR ICU USE ONLY, Start date: 02/21/18 13:30:00 CDT, Durat ion: 30 day, Stop date: 03/23/18 13:29:00 CDT Notes: (Same As: Tums)Calcium Carbonate 500 mg = 200 mg elemental calcium Dose = mg calcium carbonate ( mg elemental calcium) Start Date: 02/21/18 Stop Date: 02/24/18 Status: Discontinued calcium carbonate 500 mg (200 mg elemental calcium) oral tablet 1,000 mg, 2 tab, Route: PO, Drug form: CHEWTAB, PRN, Dosing Weight 95.455, kg, P RN Abnormal Lab Result, FOR ICU USE ONLY, Start date: 02/21/18 13:30:00 CDT, Dur ation: 30 day, Stop date: 03/23/18 13:29:00 CDT Notes: (Same As: Tums)Calcium Carbonate 500 mg = 200 mg elemental calcium Dose = mg calcium carbonate ( mg elemental calcium) Start Date: 02/21/18 Stop Date: 02/24/18 Status: Discontinued calcium gluconate (ANES) Route: IV, Drug form: INJ, ONCE, Stop date: 02/21/18 11:20:00 CDT Start Date: 02/21/18 Stop Date: 02/21/18 Status: Completed calcium gluconate + Sodium Chloride 0.9% IV 50 mL 1 gm, 10 mL, Route: IVPB, PRN, Dosing Weight 95.455, kg, PRN Abnormal Lab Result , Start date: 02/21/18 13:30:00 CDT, Duration: 30 day, Stop date: 03/23/18 13:29 :00 CDT, FOR ICU USE ONLY Notes: WASTE: F/P - Sink; E - Municipal Trash Bin Start Date: 02/21/18 Stop Date: 02/24/18 Status: Discontinued calcium gluconate + Sodium Chloride 0.9% IV 70 mL 3 gm, 30 mL, Route: IVPB, PRN, Dosing Weight 95.455, kg, PRN Abnormal Lab Result , For NON-ICU Patients Only., Start date: 02/24/18 10:37:00 CDT, Duration: 30 da y, Stop date: 03/26/18 10:36:00 CDT Notes: WASTE: F/P - Sink; E - Municipal Trash Bin Start Date: 02/24/18 Stop Date: 02/26/18 Status: Discontinued calcium gluconate + Sodium Chloride 0.9% IV 80 mL 2 gm, 20 mL, Route: IVPB, PRN, Dosing Weight 95.455, kg, PRN Abnormal Lab Result , For NON-ICU Patients Only., Start date: 02/24/18 10:37:00 CDT, Duration: 30 da y, Stop date: 03/26/18 10:36:00 CDT Notes: WASTE: F/P - Sink; E - Municipal Trash Bin Start Date: 02/24/18 Stop Date: 02/26/18 Status: Discontinued ceFAZolin (ANES) Route: IV, Drug form: INJ, ONCE, Stop date: 02/21/18 9:00:00 CDT Start Date: 02/21/18 Stop Date: 02/21/18 Status: Completed ceFAZolin (SCIP) + sterile water 10 mL 1 gm, Route: IVPB, [id number], Dosing Weight 95.455, kg, Start date: 02/21/18 16:00: 00 CDT, Duration: 1 doses or times, Stop date: 02/21/18 16:00:00 CDT, ABX Indica tion: Surgical Prophylaxis Notes: (Same As: Maximo Bledsoe) MEDICATION WASTE Product Size: 1000 mgP roduct Wasted: 0___ mg Start Date: 02/21/18 Stop Date: 02/21/18 Status: Completed chlorhexidine topical 0.12% liquid 15 mL, Route: Swab Mouth, Q12H, Drug form: LIQ, Start date: 02/21/18 21:00:00 CD T, Duration: 30 day, Stop date: 03/23/18 9:00:00 CDT Notes: (Same As: Peridex) Start Date: 02/21/18 Stop Date: 02/22/18 Status: Discontinued chlorhexidine topical 0.12% liquid 15 mL, Route: Swab Mouth, PRN, Drug form: LIQ, PRN Other -See Comment, Start rafat e: 02/21/18 13:34:00 CDT, Duration: 30 day, Stop date: 03/23/18 13:33:00 CDT Notes: (Same As: Peridex) Start Date: 02/21/18 Stop Date: 02/22/18 Status: Discontinued clopidogrel 75 mg, 1 tab, Route: PO, Drug form: TAB, Daily, Dosing Weight 95.455, kg, Start date: 02/22/18 9:00:00 CDT, Duration: 30 day, Stop date: 03/23/18 9:00:00 CDT Notes: (Same As: Plavix) Start Date: 02/22/18 Stop Date: 02/26/18 Status: Discontinued clopidogrel 75 mg oral tablet 75 mg = 1 tab, PO, Daily, # 30 tab, 0 Refill(s) Start Date: 02/26/18 Stop Date: 03/28/18 Status: Ordered dexmedetomidine 400 microgram in NS 100 mL (Titrate.) IV 400 microgram + Sodium Chloride 0.9% IV 10 400 microgram, Rate: Titrate, Start Dose: 0.2 microgram/kg/hr, Titration: 0.1 mi crogram/kg/hr every 30 min, Goal(s): RASS -1, Max Dose: 1.5 microgram/kg/hr, Rou te: IV, Dosing Weight 95.455 kg, Total Volume: 100, Start date: 02/21/18 15:13:0 0 CDT, Dura... Start Date: 02/21/18 Stop Date: 02/22/18 Status: Discontinued Dextrose 50% Syringe 12.5 gm, 25 mL, Route: IVP, Drug Form: INJ, Dosing Weight 95.455, kg, PRN, PRN B lood Glucose Results, Start date: 02/22/18 13:55:00 CDT, Duration: 30 day, Stop date: 03/24/18 13:54:00 CDT Start Date: 02/22/18 Stop Date: 02/26/18 Status: Discontinued Dextrose 50% Syringe 25 gm, 50 mL, Route: IVP, Drug Form: INJ, Dosing Weight 95.455, kg, PRN, PRN Blo od Glucose Results, Start date: 02/22/18 13:55:00 CDT, Duration: 30 day, Stop da te: 03/24/18 13:54:00 CDT Start Date: 02/22/18 Stop Date: 02/26/18 Status: Discontinued Dextrose 50% Syringe 25 gm, 50 mL, Route: IVP, Drug Form: INJ, Dosing Weight 95.455, kg, PRN, PRN Blo od Glucose Results, Start date: 02/21/18 13:30:00 CDT, Duration: 30 day, Stop da te: 03/23/18 13:29:00 CDT Start Date: 02/21/18 Stop Date: 02/22/18 Status: Discontinued Dextrose 50% Syringe 12.5 gm, 25 mL, Route: IVP, Drug Form: INJ, Dosing Weight 95.455, kg, PRN, PRN B lood Glucose Results, Start date: 02/21/18 13:30:00 CDT, Duration: 30 day, Stop date: 03/23/18 13:29:00 CDT Start Date: 02/21/18 Stop Date: 02/22/18 Status: Discontinued docusate-senna 50 mg-8.6 mg oral tablet 2 tab, Route: PO, Drug Form: TAB, Dosing Weight 95.455, kg, BID, Start date: 17:00:00 CDT, Duration: 30 day, Stop date: 03/24/18 9:00:00 CDT Notes: (Same as Ac-S) Equiv. to Liz-Colace. Start Date: 02/22/18 Stop Date: 02/26/18 Status: Discontinued DuoNeb inhalation solution 3 ml, Route: NEB, Drug Form: SOLN, Dosing Weight 95.455, kg, PRN, PRN Respirator y Protocol, Start date: 02/22/18 21:00:00 CDT, Duration: 30 day, Stop date: 03/10 03/27 20:59:00 CDT Notes: (Same as: Duoneb) Start Date: 02/22/18 Stop Date: 02/26/18 Status: Discontinued esmolol (ANES) Route: IV, Drug form: INJ, ONCE, Stop date: 02/21/18 8:45:00 CDT Start Date: 02/21/18 Stop Date: 02/21/18 Status: Completed fentaNYL 50 microgram, Route: IV, ONCE, Dosing Weight 95.455, kg, Start date: 02/21/18 15 :06:00 CDT, Stop date: 02/21/18 15:06:00 CDT Start Date: 02/21/18 Stop Date: 02/21/18 Status: Completed fentaNYL 25 microgram, 0.5 mL, Route: IVP, Drug form: INJ, Q2H, Dosing Weight 95.455, kg, PRN Pain Score 4-6, Start date: 02/21/18 13:30:00 CDT, Duration: 30 day, Stop d ate: 03/23/18 13:29:00 CDT Notes: (Same as: Sublimaze) Preservative free. Start Date: 02/21/18 Stop Date: 02/24/18 Status: Discontinued fentaNYL (ANES) Route: IV, Drug form: INJ, ONCE, Stop date: 02/21/18 9:00:00 CDT Start Date: 02/21/18 Stop Date: 02/21/18 Status: Completed fentaNYL (PF) 20 mcg/ml TRANSFORMATION ANALYST (600 microgram /30 mL) 600 microgram 600 microgram, 30 mL, Route: IV, TRANSFORMATION ANALYST Dose: 10 mcg, TRANSFORMATION ANALYST Lockout: 10 minutes, Cont inuous Basal Rate: 0 mg, 4 Hour Limit (In MCG): 240, Drug Form: INJ, Continuous, Start date: 02/21/18 13:56:00 CDT, Duration: 30 day, Stop date: 03/23/18 13:55: 00 CDT Notes: Concentration is 20 micrograms/ml Start Date: 02/21/18 Stop Date: 02/21/18 Status: Discontinued fentaNYL 1000 microgram in 20 mL NS (Titrate.) IV 1,000 microgram 1,000 microgram, 20 mL, Rate: Titrate, Start Dose: 50 microgram/hr, Titration: 2 5 microgram/hour every 15 minutes, Goal(s): 2, Max Dose: 300 microgram/hr, Route : IV, Dosing Weight 95.455 kg, Total Volume: 20, Start date: 02/21/18 15:06:00 C Silverio MOYER... Start Date: 02/21/18 Stop Date: 02/22/18 Status: Discontinued furosemide 40 mg, 4 mL, Route: IVP, Drug form: INJ, ONCE, Dosing Weight 95.455, kg, Start d ate: 02/23/18 8:08:00 CDT, Stop date: 02/23/18 8:08:00 CDT Notes: (Same as: Lasix) MEDICATION WASTE Product Size: 40 mgProduct Was elvis: ___ mg Start Date: 02/23/18 Stop Date: 02/23/18 Status: Completed furosemide 20 mg oral tablet 20 mg = 1 tab, PO, Daily, # 3 tab, 0 Refill(s) Start Date: 02/26/18 Stop Date: 03/01/18 Status: Ordered glucagon 1 mg, Route: IM, Drug form: PDR/INJ, PRN, Dosing Weight 95.455, kg, PRN Blood Gl ucose Results, Start date: 02/22/18 13:55:00 CDT, Duration: 30 day, Stop date: 0 03/24/18 13:54:00 CDT Start Date: 02/22/18 Stop Date: 02/26/18 Status: Discontinued heparin (ANES) Route: IV, Drug form: INJ, ONCE, Stop date: 02/21/18 9:55:00 CDT Start Date: 02/21/18 Stop Date: 02/21/18 Status: Completed HYDROmorphone 0.5mg/mL TRANSFORMATION ANALYST (15mg/30 mL) 15 mg 15 mg, 30 mL, Route: IV, Initial Loading Dose: 0.4mg, TRANSFORMATION ANALYST Dose: 0.2 mg, TRANSFORMATION ANALYST Lock out: 10 minutes, Continuous Basal Rate: 0 mg, 4 Hour Limit (In MG): 6, Drug Form : INJ, Continuous, Start date: 02/21/18 22:26:00 CDT, Duration: 30 day, Stop rafat e: 03/23/18... Notes: (Same as: Dilaudid) conc = 0.5 mg/mlHydromorphone TRANSFORMATION ANALYST Dose: ;Jesi y: ;Basal: Start Date: 02/21/18 Stop Date: 02/24/18 Status: Discontinued insulin lispro 2 unit, 0.02 mL, Route: SUB-Q, Drug form: SOLN, Bedtime, Dosing Weight 95.455, k g, PRN Blood Glucose Results, Start date: 02/22/18 13:55:00 CDT, Duration: 30 da y, Stop date: 03/24/18 13:54:00 CDT Notes: (Same as: Humalog ) Roll in palms of hands gently; Do not shake `vigorou sly. "Single Patient Use Only " WASTE: F/P - Black; E - Municipal Trash [address] St able for 28 days at room temperature.Expires in days from Da te Start Date: 02/22/18 Stop Date: 02/26/18 Status: Discontinued insulin lispro 3 unit, 0.03 mL, Route: SUB-Q, Drug form: SOLN, Bedtime, Dosing Weight 95.455, k g, PRN Blood Glucose Results, Start date: 02/22/18 13:55:00 CDT, Duration: 30 da y, Stop date: 03/24/18 13:54:00 CDT Notes: (Same as: Humalog ) Roll in palms of hands gently; Do not shake `vigorou sly. "Single Patient Use Only " WASTE: F/P - Black; E - [facility] [address] able for 28 days at room temperature.Expires in days from Da te Start Date: 02/22/18 Stop Date: 02/26/18 Status: Discontinued insulin lispro 1 unit, 0.01 mL, Route: SUB-Q, Drug form: SOLN, Bedtime, Dosing Weight 95.455, k g, PRN Blood Glucose Results, Start date: 02/22/18 13:55:00 CDT, Duration: 30 da y, Stop date: 03/24/18 13:54:00 CDT Notes: (Same as: Humalog ) Roll in palms of hands gently; Do not shake `vigorou sly. "Single Patient Use Only " WASTE: F/P - Black; E - [facility] [address] able for 28 days at room temperature.Expires in days from Da te Start Date: 02/22/18 Stop Date: 02/26/18 Status: Discontinued insulin lispro 4 unit, 0.04 mL, Route: SUB-Q, Drug form: SOLN, Bedtime, Dosing Weight 95.455, k g, PRN Blood Glucose Results, Start date: 02/22/18 13:55:00 CDT, Duration: 30 da y, Stop date: 03/24/18 13:54:00 CDT Notes: (Same as: Humalog ) Roll in palms of hands gently; Do not shake `vigorou sly. "Single Patient Use Only " WASTE: F/P - Black; E - [facility] [address] able for 28 days at room temperature.Expires in days from Da te Start Date: 02/22/18 Stop Date: 02/26/18 Status: Discontinued insulin lispro 2 unit, 0.02 mL, Route: SUB-Q, Drug form: SOLN, TID-Before Meals, Dosing Weight 95.455, kg, PRN Blood Glucose Results, Start date: 02/22/18 13:55:00 CDT, Durati on: 30 day, Stop date: 03/24/18 13:54:00 CDT Notes: (Same as: Humalog ) Roll in palms of hands gently; Do not shake `vigorou sly. "Single Patient Use Only " WASTE: F/P - Black; E - [facility] [address] able for 28 days at room temperature.Expires in days from Da te Start Date: 02/22/18 Stop Date: 02/26/18 Status: Discontinued insulin lispro 10 unit, 0.1 mL, Route: SUB-Q, Drug form: SOLN, TID-Before Meals, Dosing Weight 95.455, kg, PRN Blood Glucose Results, Start date: 02/22/18 13:55:00 CDT, Durati on: 30 day, Stop date: 03/24/18 13:54:00 CDT Notes: (Same as: Humalog ) Roll in palms of hands gently; Do not shake `vigorou sly. "Single Patient Use Only " WASTE: F/P - Black; E - [facility] [address] able for 28 days at room temperature.Expires in days from Da te Start Date: 02/22/18 Stop Date: 02/26/18 Status: Discontinued insulin lispro 8 unit, 0.08 mL, Route: SUB-Q, Drug form: SOLN, TID-Before Meals, Dosing Weight 95.455, kg, PRN Blood Glucose Results, Start date: 02/22/18 13:55:00 CDT, Durati on: 30 day, Stop date: 03/24/18 13:54:00 CDT Notes: (Same as: Humalog ) Roll in palms of hands gently; Do not shake `vigorou sly. "Single Patient Use Only " WASTE: F/P - Black; E - [facility] [address] able for 28 days at room temperature.Expires in days from Da te Start Date: 02/22/18 Stop Date: 02/26/18 Status: Discontinued insulin lispro 6 unit, 0.06 mL, Route: SUB-Q, Drug form: SOLN, TID-Before Meals, Dosing Weight 95.455, kg, PRN Blood Glucose Results, Start date: 02/22/18 13:55:00 CDT, Durati on: 30 day, Stop date: 03/24/18 13:54:00 CDT Notes: (Same as: Humalog ) Roll in palms of hands gently; Do not shake `vigorou sly. "Single Patient Use Only " WASTE: F/P - Black; E - [facility] [address] able for 28 days at room temperature.Expires in days from Da te Start Date: 02/22/18 Stop Date: 02/26/18 Status: Discontinued insulin lispro 4 unit, 0.04 mL, Route: SUB-Q, Drug form: SOLN, TID-Before Meals, Dosing Weight 95.455, kg, PRN Blood Glucose Results, Start date: 02/22/18 13:55:00 CDT, Durati on: 30 day, Stop date: 03/24/18 13:54:00 CDT Notes: (Same as: Humalog ) Roll in palms of hands gently; Do not shake `vigorou sly. "Single Patient Use Only " WASTE: F/P - Black; E - [facility] [address] able for 28 days at room temperature.Expires in days from Da te Start Date: 02/22/18 Stop Date: 02/26/18 Status: Discontinued Insulin regular (ANES) Route: IV, Drug form: INJ, ONCE, Stop date: 02/21/18 11:55:00 CDT Start Date: 02/21/18 Stop Date: 02/21/18 Status: Completed Insulin regular 100 unit + 99 mL, Rate: Start Insulin Drip Per ICU Protocol, Dosing Weight 95.455, kg, Rout e: IVPB, Total Volume: 100, Start Date: 02/21/18 13:30:00 CDT, Duration: 30 day, Stop date: 03/23/18 13:29:00 CDT, Replace Every: 24 hr Notes: Final Concentration 1unit/1mlWASTE: F/P - Black; E - Municipal Trash Bin Start Date: 02/21/18 Stop Date: 02/22/18 Status: Discontinued labetalol 5 mg, 1 mL, Route: IV, Drug form: INJ, ONCE, Dosing Weight 95.455, kg, Priority: NOW, Start date: 02/21/18 14:01:00 CDT, Stop date: 02/21/18 14:01:00 CDT Start Date: 02/21/18 Stop Date: 02/21/18 Status: Completed Lasix 40 mg, 4 mL, Route: IV, Drug form: INJ, ONCE, Dosing Weight 95.455, kg, Priority : STAT, Start date: 02/23/18 2:14:00 CDT, Stop date: 02/23/18 2:14:00 CDT Notes: (Same as: Lasix) MEDICATION WASTE Product Size: 40 mgProduct Was elvis: ___ mg Start Date: 02/23/18 Stop Date: 02/23/18 Status: Completed Lasix 20 mg, 2 mL, Route: IV, Drug form: INJ, ONCE, Dosing Weight 95.455, kg, Start da te: 02/24/18 12:00:00 CDT, Stop date: 02/24/18 12:00:00 CDT Notes: (Same as: Lasix) Start Date: 02/24/18 Stop Date: 02/24/18 Status: Completed Lasix 40 mg, 1 tab, Route: PO, Drug form: TAB, Daily, Dosing Weight 95.455, kg, Start date: 02/24/18 9:00:00 CDT, Duration: 30 day, Stop date: 03/25/18 9:00:00 CDT Notes: (Same as: Lasix) May cause GI upset. Give with food or milk. Start Date: 02/24/18 Stop Date: 02/26/18 Status: Discontinued lisinopril 5 mg, 1 tab, Route: PO, Drug form: TAB, BID, Dosing Weight 95.455, kg, Start rafat e: 02/24/18 9:00:00 CDT, Duration: 30 day, Stop date: 03/25/18 17:00:00 CDT Notes: (Same as: Prinivfaustino Zestril) Start Date: 02/24/18 Stop Date: 02/25/18 Status: Discontinued lisinopril 5 mg, 1 tab, Route: PO, Drug form: TAB, Daily, Dosing Weight 95.455, kg, Start d ate: 02/25/18 9:00:00 CDT, Duration: 30 day, Stop date: 03/26/18 9:00:00 CDT Notes: (Same as: Prinivil, Zestril) Start Date: 02/25/18 Stop Date: 02/26/18 Status: Discontinued lisinopril 5 mg oral tablet 5 mg = 1 tab, PO, Daily, # 30 tab, 0 Refill(s) Start Date: 02/26/18 Stop Date: 03/28/18 Status: Ordered Lovenox 40 mg, 0.4 mL, Route: SUB-Q, Drug form: INJ, [id number], Dosing Weight 95.455, kg, Start date: 02/23/18 6:00:00 CDT, Duration: 30 day, Stop date: 03/24/18 6:00:00 CDT Notes: (Same as: Lovenox) Start Date: 02/23/18 Stop Date: 02/26/18 Status: Discontinued magnesium oxide 800 mg, 2 tab, Route: PO, Drug form: TAB, PRN, Dosing Weight 95.455, kg, PRN Abn ormal Lab Result, For NON-ICU Patients Only., Start date: 02/24/18 10:37:00 CDT, Duration: 30 day, Stop date: 03/26/18 10:36:00 CDT Notes: (Same as: Mag-Ox 400)Magnesium oxide [id number] elemental magnesiumDose= ____mg magnesium oxide (___mg elemental magnesium) Start Date: 02/24/18 Stop Date: 02/26/18 Status: Discontinued magnesium oxide 800 mg, 2 tab, Route: PO, Drug form: TAB, PRN, Dosing Weight 95.455, kg, PRN Abn ormal Lab Result, FOR ICU USE ONLY, Start date: 02/21/18 13:30:00 CDT, Duration: 30 day, Stop date: 03/23/18 13:29:00 CDT Notes: (Same as: Mag-Ox 400)Magnesium oxide [id number] elemental magnesiumDose= ____mg magnesium oxide (___mg elemental magnesium) Start Date: 02/21/18 Stop Date: 02/24/18 Status: Discontinued magnesium sulfate 2 gm, 50 mL, Route: IVPB, Drug form: INJ, ONCE, Dosing Weight 95.455, kg, Total dose = 2 gm, Start date: 02/20/18 23:24:00 CDT, Stop date: 02/20/18 23:24:00 CDT Notes: WASTE: F/P - Sink; E - Municipal Trash Bin Start Date: 02/20/18 Stop Date: 02/21/18 Status: Completed magnesium sulfate 1 gm, 100 mL, Route: IVPB, Drug form: INJ, PRN, Dosing Weight 95.455, kg, PRN Ab normal Lab Result, For NON-ICU Patients Only., Start date: 02/24/18 10:37:00 CDT , Duration: 30 day, Stop date: 03/26/18 10:36:00 CDT Notes: WASTE: F/P - Sink; E - Municipal Trash Bin Start Date: 02/24/18 Stop Date: 02/26/18 Status: Discontinued magnesium sulfate 2 gm, 50 mL, Route: IVPB, Drug form: INJ, PRN, Dosing Weight 95.455, kg, PRN Abn ormal Lab Result, For NON-ICU Patients Only., Start date: 02/24/18 10:37:00 CDT, Duration: 30 day, Stop date: 03/26/18 10:36:00 CDT Notes: WASTE: F/P - Sink; E - [employer] Trash Bin Start Date: 02/24/18 Stop Date: 02/26/18 Status: Discontinued magnesium sulfate 2 gm, 50 mL, Route: IVPB, Drug form: INJ, PRN, Dosing Weight 95.455, kg, PRN Abn ormal Lab Result, Start date: 02/21/18 13:30:00 CDT, Duration: 30 day, Stop date : 03/23/18 13:29:00 CDT, FOR ICU USE ONLY Notes: WASTE: F/P - Sink; E - Municipal Trash Bin Start Date: 02/21/18 Stop Date: 02/24/18 Status: Discontinued metoprolol tartrate 12.5 mg, 0.5 tab, Route: PO, Drug form: TAB, ONCE, Dosing Weight 95.455, kg, Leonarda ority: NOW, Start date: 02/21/18 21:19:00 CDT, Stop date: 02/21/18 21:19:00 CDT Notes: (Same as: Lopressor) 12.5 mg=1/2 X 25 mg TAB Start Date: 02/21/18 Stop Date: 02/21/18 Status: Completed metoprolol tartrate 25 mg, 1 tab, Route: PO, Drug form: TAB, BID, Dosing Weight 95.455, kg, Start da te: 02/22/18 17:00:00 CDT, Duration: 30 day, Stop date: 03/24/18 9:00:00 CDT Notes: (Same as: Lopressor) Start Date: 02/22/18 Stop Date: 02/25/18 Status: Discontinued metoprolol tartrate 12.5 mg, 0.5 tab, Route: PO, Drug form: TAB, BID, Dosing Weight 95.455, kg, Star t date: 02/21/18 17:00:00 CDT, Duration: 30 day, Stop date: 03/23/18 9:00:00 CDT Notes: (Same as: Lopressor) 12.5 mg=1/2 X 25 mg TAB Start Date: 02/21/18 Stop Date: 02/22/18 Status: Discontinued metoprolol tartrate 37.5 mg, 1.5 tab, Route: PO, Drug form: TAB, Q12H, Dosing Weight 95.455, kg, Leonarda ority: NOW, Start date: 02/25/18 9:00:00 CDT, Stop date: 03/26/18 21:00:00 CDT Notes: (Same as: Lopressor) Start Date: 02/25/18 Stop Date: 02/26/18 Status: Discontinued metoprolol tartrate 50 mg oral tablet 50 mg = 1 tab, PO, BID, # 60 tab, 0 Refill(s) Start Date: 02/26/18 Status: Ordered midazolam 2 mg, 2 mL, Route: IV, Drug form: INJ, ONCE, Dosing Weight 95.455, kg, Start rafat e: 02/21/18 14:03:00 CDT, Stop date: 02/21/18 14:03:00 CDT Notes: (Same as: Versed) MEDICATION WASTE Product Size: 5 mgProduct Was elvis: ___ mg Start Date: 02/21/18 Stop Date: 02/21/18 Status: Completed midazolam (ANES) Route: IV, Drug form: SOLN, ONCE, Stop date: 02/21/18 8:19:00 CDT Start Date: 02/21/18 Stop Date: 02/21/18 Status: Completed MiraLax 17 gm, 1 pkt, Route: PO, Drug form: PWDR, BID, Dosing Weight 95.455, kg, Start d ate: 02/22/18 17:00:00 CDT, Duration: 30 day, Stop date: 03/24/18 9:00:00 CDT Notes: Dissolve in 8 oz of water or juice.(Same as: Miralax) Start Date: 02/22/18 Stop Date: 02/26/18 Status: Discontinued naloxone 0.04 mg, 0.1 mL, Route: IVP, Drug form: INJ, Q2MIN, Dosing Weight 95.455, kg, OR N Narcotic Reversal, Start date: 02/21/18 13:56:00 CDT, Duration: 30 day, Stop d ate: 03/23/18 13:55:00 CDT Notes: Same as Narcan Start Date: 02/21/18 Stop Date: 02/21/18 Status: Discontinued naloxone 0.04 mg, 0.1 mL, Route: IVP, Drug form: INJ, Q2MIN, Dosing Weight 95.455, kg, OR N Narcotic Reversal, Start date: 02/21/18 22:26:00 CDT, Duration: 30 day, Stop d ate: 03/23/18 22:25:00 CDT Notes: Same as Narcan Start Date: 02/21/18 Stop Date: 02/24/18 Status: Discontinued NS (Bolus) IV 500 mL, 500 ml/hr, Infuse Over: 1 hr, Route: IV, 500, Drug form: INJ, ONCE, Prio rity: STAT, Dosing Weight 95.455 kg, Start date: 02/21/18 21:19:00 CDT, Stop rafat e: 02/21/18 21:19:00 CDT Start Date: 02/21/18 Stop Date: 02/21/18 Status: Completed NS (Bolus) IV 500 mL, 500 ml/hr, Infuse Over: 1 hr, Route: IV, 500, Drug form: INJ, ONCE, Prio rity: STAT, Dosing Weight 95.455 kg, Start date: 02/21/18 17:03:00 CDT, Stop rafat e: 02/21/18 17:03:00 CDT Start Date: 02/21/18 Stop Date: 02/21/18 Status: Completed NS 1,000 mL 1,000 mL, Rate: 75 ml/hr, Infuse over: 13.3 hr, Route: IV, Dosing Weight 95.455 kg, Total Volume: 1,000, Start date: 02/20/18 23:56:00 CDT, Duration: 30 day, St op date: 03/22/18 23:55:00 CDT, 2.15, m2 Start Date: 02/20/18 Stop Date: 02/22/18 Status: Discontinued ocular lubricant 1 appl, Route: BOTH EYES, Q6H, Drug form: OINT, Start date: 02/21/18 18:00:00 CD T, Duration: 30 day, Stop date: 03/23/18 12:00:00 CDT Notes: (Same as: Lacri-Lube, Duratears Naturale, Artificial Tears, and Tears Aga in ) Start Date: 02/21/18 Stop Date: 02/22/18 Status: Discontinued Ofirmev 1,000 mg, 100 mL, Route: IV, Drug form: INJ, Q6H, Dosing Weight 95.455, kg, PRN Pain Score 4-6, Start date: 02/20/18 23:18:00 CDT, Duration: 30 day, Stop date: 03/22/18 23:17:00 CDT Notes: Infuse over 15 minutesDo not exceed 4gm/day of acetaminophen MEDICAT ION WASTE Product Size: 1000 mgProduct Wasted: ___ mg Start Date: 02/20/18 Stop Date: 02/22/18 Status: Discontinued oxyCODONE 5 mg oral tablet 10 mg, 2 tab, Route: PO, Drug form: TAB, Q4H, Dosing Weight 95.455, kg, PRN Pain Score 6-10, Start date: 02/22/18 11:50:00 CDT, Duration: 30 day, Stop date: 11:49:00 CDT Notes: (Same as: Roxicodone) Start Date: 02/22/18 Stop Date: 02/26/18 Status: Discontinued oxyCODONE 5 mg oral tablet 5 mg, 1 tab, Route: PO, Drug form: TAB, Q4H, Dosing Weight 95.455, kg, PRN Pain Score 4-6, Start date: 02/22/18 11:50:00 CDT, Duration: 30 day, Stop date: 03/24 11:49:00 CDT Notes: (Same as: Roxicodone) Start Date: 02/22/18 Stop Date: 02/26/18 Status: Discontinued pantoprazole 40 mg oral enteric coated tablet 40 mg = 1 tab, PO, Daily, # 30 tab, 0 Refill(s) Start Date: 02/26/18 Stop Date: 03/28/18 Status: Ordered potassium chloride 10 mEq, 50 mL, Route: IVPB, Drug form: INJ, PRN, Dosing Weight 95.455, kg, PRN A bnormal Lab Result, For NON-ICU Patients Only, Start date: 02/24/18 10:37:00 CDT , Duration: 30 day, Stop date: 03/26/18 10:36:00 CDT Notes: (Same as: KCL) Infuse over 2 hours. Start Date: 02/24/18 Stop Date: 02/26/18 Status: Discontinued potassium chloride 20 mEq, 15 mL, Route: NJ, Drug form: LIQ, PRN, Dosing Weight 95.455, kg, PRN Abn ormal Lab Result, For NON-ICU Patients Only, Start date: 02/24/18 10:37:00 CDT, Duration: 30 day, Stop date: 03/26/18 10:36:00 CDT Notes: (Same as: Potassium Chloride) Start Date: 02/24/18 Stop Date: 02/26/18 Status: Discontinued potassium chloride 20 mEq, 1 tab, Route: PO, Drug form: ERTAB, PRN, Dosing Weight 95.455, kg, PRN A bnormal Lab Result, For NON-ICU Patients Only, Start date: 02/24/18 10:37:00 CDT , Duration: 30 day, Stop date: 03/26/18 10:36:00 CDT Notes: (Same as: K-Dur 20)"Do Not Crush"For patients unable to swallow tablet, d issolve in one half glass of water. Allow about 2 minutes for the tablets to dis integrate. Stir before giving to prepare slurry and administer.Please exclude Pa tients with feeding tube less than 14 Hungarian (Dobhoff, J-tube etc) and pediat marianne and patients. With food and full glass of water Start Date: 02/24/18 Stop Date: 02/26/18 Status: Discontinued potassium chloride 20 mEq, 15 mL, Route: NJ, Drug form: LIQ, PRN, Dosing Weight 95.455, kg, PRN Abn ormal Lab Result, Start date: 02/21/18 13:30:00 CDT, Duration: 30 day, Stop date : 03/23/18 13:29:00 CDT, FOR ICU USE ONLY Notes: (Same as: Potassium Chloride) Start Date: 02/21/18 Stop Date: 02/24/18 Status: Discontinued potassium chloride 20 mEq, 100 mL, Route: IVPB, Drug form: INJ, PRN, Dosing Weight 95.455, kg, PRN Abnormal Lab Result, Via central line, Start date: 02/21/18 13:30:00 CDT, Durati on: 30 day, Stop date: 03/23/18 13:29:00 CDT, FOR ICU USE ONLY Notes: (Same as: KCL) Infuse no faster than 10 mEq/hr if given peripherally. Start Date: 02/21/18 Stop Date: 02/24/18 Status: Discontinued potassium chloride 10 mEq, 50 mL, Route: IVPB, Drug form: INJ, PRN, Dosing Weight 95.455, kg, PRN A bnormal Lab Result, Via peripheral line, Start date: 02/21/18 13:30:00 CDT, Dura tion: 30 day, Stop date: 03/23/18 13:29:00 CDT, FOR ICU USE ONLY Notes: (Same as: KCL) Infuse over 2 hours. Start Date: 02/21/18 Stop Date: 02/24/18 Status: Discontinued potassium chloride 20 mEq, 1 tab, Route: PO, Drug form: ERTAB, PRN, Dosing Weight 95.455, kg, PRN A bnormal Lab Result, Start date: 02/21/18 13:30:00 CDT, Duration: 30 day, Stop da te: 03/23/18 13:29:00 CDT, FOR ICU USE ONLY Notes: (Same as: K-Dur 20)"Do Not Crush"For patients unable to swallow tablet, d issolve in one half glass of water. Allow about 2 minutes for the tablets to dis integrate. Stir before giving to prepare slurry and administer.Please exclude Pa tients with feeding tube less than 14 Hungarian (Dobhoff, J-tube etc) and pediat marianne and patients. With food and full glass of water Start Date: 02/21/18 Stop Date: 02/24/18 Status: Discontinued potassium chloride 20 mEq oral tablet, extended release 20 mEq, 1 tab, Route: PO, Drug form: ERTAB, ONCE, Dosing Weight 95.455, kg, Star t date: 02/20/18 23:24:00 CDT, Stop date: 02/20/18 23:24:00 CDT Notes: (Same as: K-Dur 20)"Do Not Crush"For patients unable to swallow tablet, d issolve in one half glass of water. Allow about 2 minutes for the tablets to dis integrate. Stir before giving to prepare slurry and administer.Please exclude Pa tients with feeding tube less than 14 Hungarian (Dobhoff, J-tube etc) and pediat marianne and patients. With food and full glass of water Start Date: 02/20/18 Stop Date: 02/21/18 Status: Completed potassium chloride 20 mEq/15 mL oral liquid 40 mEq, 30 mL, Route: PO, Drug form: LIQ, Q1H, Dosing Weight 95.455, kg, Start d ate: 02/26/18 8:00:00 CDT, Duration: 2 doses or times, Stop date: 02/26/18 9:00: 00 CDT Notes: (Same as: Potassium Chloride) Start Date: 02/26/18 Stop Date: 02/26/18 Status: Completed potassium chloride 20 mEq/15 mL oral liquid 20 mEq = 15 mL, PO, Daily, # 75 mL, 0 Refill(s) Start Date: 02/26/18 Stop Date: 03/03/18 Status: Ordered potassium phosphate + Sodium Chloride 0.9% IV 250 mL 30 mmol, 10 mL, Route: IVPB, PRN, Dosing Weight 95.455, kg, PRN Abnormal Lab Res ult, For NON-ICU Patients Only., Start date: 02/24/18 10:37:00 CDT, Duration: 30 day, Stop date: 03/26/18 10:36:00 CDT Notes: (Same as: K Phosphate.) 1 mMol phoshate has 1.47 mEq potassium Infuse o feliciano 4 hours Start Date: 02/24/18 Stop Date: 02/26/18 Status: Discontinued potassium phosphate + Sodium Chloride 0.9% IV 250 mL 15 mmol, 5 mL, Route: IVPB, PRN, Dosing Weight 95.455, kg, PRN Abnormal Lab Resu lt, For NON-ICU Patients Only., Start date: 02/24/18 10:37:00 CDT, Duration: 30 day, Stop date: 03/26/18 10:36:00 CDT Notes: (Same as: K Phosphate.) 1 mMol phoshate has 1.47 mEq potassium Infuse o feliciano 4 hours Start Date: 02/24/18 Stop Date: 02/26/18 Status: Discontinued potassium phosphate + Sodium Chloride 0.9% IV 250 mL 15 mmol, 5 mL, Route: IVPB, PRN, Dosing Weight 95.455, kg, PRN Abnormal Lab Resu lt, Start date: 02/21/18 13:30:00 CDT, Duration: 30 day, Stop date: 03/23/18 13: 29:00 CDT, FOR ICU USE ONLY Notes: (Same as: K Phosphate.) 1 mMol phoshate has 1.47 mEq potassium Infuse o feliciano 4 hours Start Date: 02/21/18 Stop Date: 02/24/18 Status: Discontinued potassium phosphate + Sodium Chloride 0.9% IV 250 mL 30 mmol, 10 mL, Route: IVPB, PRN, Dosing Weight 95.455, kg, PRN Abnormal Lab Res ult, Start date: 02/21/18 13:30:00 CDT, Duration: 30 day, Stop date: 03/23/18 13 :29:00 CDT, FOR ICU USE ONLY Notes: (Same as: K Phosphate.) 1 mMol phoshate has 1.47 mEq potassium Infuse o feliciano 4 hours Start Date: 02/21/18 Stop Date: 02/24/18 Status: Discontinued potassium phosphate + Sodium Chloride 0.9% IV 250 mL 45 mmol, 15 mL, Route: IVPB, PRN, Dosing Weight 95.455, kg, PRN Abnormal Lab Res ult, Start date: 02/21/18 13:30:00 CDT, Duration: 30 day, Stop date: 03/23/18 13 :29:00 CDT, FOR ICU USE ONLY Notes: (Same as: K Phosphate.) 1 mMol phoshate has 1.47 mEq potassium Infuse o feliciano 4 hours Start Date: 02/21/18 Stop Date: 02/24/18 Status: Discontinued potassium phosphate-sodium phosphate 250 mg-280 mg-160 mg oral powder for recons titution 2 pkt, Route: PO, Drug Form: PDR/REC, Dosing Weight 95.455, kg, PRN, PRN Abnorma l Lab Result, For NON-ICU Patients Only, Start date: 02/24/18 10:37:00 CDT, Dura tion: 30 day, Stop date: 03/26/18 10:36:00 CDT Notes: (Same as: Phos-NaK) Each 1.5 gm pkt has 250mg phosphorous. Mix w/2.5oz w ater and stir. Start Date: 02/24/18 Stop Date: 02/26/18 Status: Discontinued potassium phosphate-sodium phosphate 250 mg-280 mg-160 mg oral powder for recons titution 2 pkt, Route: PO, Drug Form: PDR/REC, Dosing Weight 95.455, kg, PRN, PRN Abnorma l Lab Result, FOR ICU USE ONLY, Start date: 02/21/18 13:30:00 CDT, Duration: 30 day, Stop date: 03/23/18 13:29:00 CDT Notes: (Same as: Phos-NaK) Each 1.5 gm pkt has 250mg phosphorous. Mix w/2.5oz w ater and stir. Start Date: 02/21/18 Stop Date: 02/24/18 Status: Discontinued propofol (ANES) Route: IV, Drug form: INJ, ONCE, Stop date: 02/21/18 8:45:00 CDT Start Date: 02/21/18 Stop Date: 02/21/18 Status: Completed protamine (ANES) Route: IV, Drug form: INJ, ONCE, Stop date: 02/21/18 11:25:00 CDT Start Date: 02/21/18 Stop Date: 02/21/18 Status: Completed Protonix 40 mg, Route: IV, Drug form: INJ, Daily, Dosing Weight 95.455, kg, Start date: 0 02/21/18 14:00:00 CDT, Duration: 30 day, Stop date: 03/23/18 9:00:00 CDT Notes: For IV push reconstitute with 10 ml 0.9% sodium chloride and push over 2 minutes. (Same as: Protonix) Start Date: 02/21/18 Stop Date: 02/22/18 Status: Discontinued Protonix 40 mg, 1 tab, Route: PO, Drug form: ECTAB, Daily, Dosing Weight 95.455, kg, Star t date: 02/23/18 9:00:00 CDT, Duration: 30 day, Stop date: 03/24/18 9:00:00 CDT Notes: Tablet should not be chewed or crushed.(Same as: Protonix) Start Date: 02/23/18 Stop Date: 02/26/18 Status: Discontinued rocuronium (ANES) Route: IV, Drug form: INJ, ONCE, Stop date: 02/21/18 9:00:00 CDT Start Date: 02/21/18 Stop Date: 02/21/18 Status: Completed Sodium Chloride 0.9% IV (ANES) 1000 mL Route: IV, Total Volume: 1,000, Start date: 02/21/18 7:47:00 CDT, Stop date: 8:47:00 CDT Start Date: 02/21/18 Stop Date: 02/21/18 Status: Completed sodium phosphate + Sodium Chloride 0.9% IV 250 mL 30 mmol, 10 mL, Route: IVPB, PRN, Dosing Weight 95.455, kg, PRN Abnormal Lab Res ult, For NON-ICU Patients Only., Start date: 02/24/18 10:37:00 CDT, Duration: 30 day, Stop date: 03/26/18 10:36:00 CDT Start Date: 02/24/18 Stop Date: 02/26/18 Status: Discontinued sodium phosphate + Sodium Chloride 0.9% IV 250 mL 15 mmol, 5 mL, Route: IVPB, PRN, Dosing Weight 95.455, kg, PRN Abnormal Lab Resu lt, For NON-ICU Patients Only., Start date: 02/24/18 10:37:00 CDT, Duration: 30 day, Stop date: 03/26/18 10:36:00 CDT Start Date: 02/24/18 Stop Date: 02/26/18 Status: Discontinued sodium phosphate + Sodium Chloride 0.9% IV 250 mL 45 mmol, 15 mL, Route: IVPB, PRN, Dosing Weight 95.455, kg, PRN Abnormal Lab Res ult, Start date: 02/21/18 13:30:00 CDT, Duration: 30 day, Stop date: 03/23/18 13 :29:00 CDT, FOR ICU USE ONLY Start Date: 02/21/18 Stop Date: 02/24/18 Status: Discontinued sodium phosphate + Sodium Chloride 0.9% IV 250 mL 15 mmol, 5 mL, Route: IVPB, PRN, Dosing Weight 95.455, kg, PRN Abnormal Lab Resu lt, Start date: 02/21/18 13:30:00 CDT, Duration: 30 day, Stop date: 03/23/18 13: 29:00 CDT, FOR ICU USE ONLY Start Date: 02/21/18 Stop Date: 02/24/18 Status: Discontinued sodium phosphate + Sodium Chloride 0.9% IV 250 mL 30 mmol, 10 mL, Route: IVPB, PRN, Dosing Weight 95.455, kg, PRN Abnormal Lab Res ult, Start date: 02/21/18 13:30:00 CDT, Duration: 30 day, Stop date: 03/23/18 13 :29:00 CDT, FOR ICU USE ONLY Start Date: 02/21/18 Stop Date: 02/24/18 Status: Discontinued tramadol 50 mg oral tablet 50 mg = 1 tab, PO, Q4H, PRN Pain, X 10 day, # 60 tab, 0 Refill(s) Start Date: 02/26/18 Stop Date: 03/08/18 Status: Ordered vancomycin (ANES) Route: IV, Drug form: INJ, ONCE, Stop date: 02/21/18 9:00:00 CDT Start Date: 02/21/18 Stop Date: 02/21/18 Status: Completed vancomycin (SCIP) 1,000 mg, Route: IVPB, Drug form: INJ, Q8H, Dosing Weight 95.455, kg, Start date : 02/21/18 16:00:00 CDT, Duration: 1 doses or times, Stop date: 02/21/18 16:00:0 0 CDT, ABX Indication: Surgical Prophylaxis Notes: TIME CRITICAL MEDICATION(Same As: Vancocin)Infusion rate< 1000 mg: infuse over 1 [id number] - 1500 mg: infuse over 1.5 [id number] - 2000 mg: infuse over 2 hours> 2001 mg: infuse over 2.5 hoursFor adult patients only: Round to nearest 250 mg per Medical Staff approval MEDICATION WASTE Product Size: 1000 mgProduct Wasted: ___ mg Start Date: 02/21/18 Stop Date: 02/21/18 Status: Completed Results BLOOD BANK RESULTS 1 2 3 Most recent to oldest [Reference Range]: A POS *Unknown* (02/24/18 2:53 AM) A POS *Unknown* (02/20/18 10:08 PM) ABO/Rh Negative (02/24/18 2:53 AM) Negative (02/20/18 10:08 PM) Antibody Scrn Product available (02/21/18 7:59 AM) FFP product Product available (02/21/18 7:58 AM) Product available (02/20/18 11:12 PM) RBC product ELECTROLYTES 1 2 3 Most recent to oldest [Reference Range]: 140 mEq/L (02/26/18 6:15 AM) 142 mEq/L (02/25/18 2:05 AM) 139 mEq/L (02/24/18 2:53 AM) Sodium Lvl [135-145 mEq/L] 3.8 mEq/L (02/26/18 11:31 AM) 3.0 mEq/L 1 *CRIT* (02/26/18 6:15 AM) 3.2 mEq/L *LOW* (02/25/18 2:05 AM) Potassium Lvl [3.5-5.1 mEq/L] 106 mEq/L (02/26/18 6:15 AM) 110 mEq/L *HI* (02/25/18 2:05 AM) 107 mEq/L (02/24/18 2:53 AM) Chloride Lvl [95-109 mEq/L] 24 mEq/L (02/26/18 6:15 AM) 19 mEq/L *LOW* (02/25/18 2:05 AM) 20 mEq/L *LOW* (02/24/18 2:53 AM) CO2 [24-32 mEq/L] 13.0 mEq/L (02/26/18 6:15 AM) 16.2 mEq/L (02/25/18 2:05 AM) 15.8 mEq/L (02/24/18 2:53 AM) AGAP [10.0-20.0 mEq/L] 1Result Comment: Critical Result(s) called to Angela Barajas at 02/26/2018 07:16 by ET. Read back OK. CHEM PANEL 1 2 3 Most recent to oldest [Reference Range]: 0.62 mg/dL (02/26/18 6:15 AM) 0.52 mg/dL (02/25/18 2:05 AM) 0.61 mg/dL (02/24/18 2:53 AM) Creatinine Lvl [0.50-1.40 mg/dL] 111 mL/min/1.73m2 1 *NA* (02/26/18 6:15 AM) 119 mL/min/1.73m2 2 *NA* (02/25/18 2:05 AM) 112 mL/min/1.73m2 3 *NA* (02/24/18 2:53 AM) eGFR 13 mg/dL (02/26/18 6:15 AM) 14 mg/dL (02/25/18 2:05 AM) 16 mg/dL (02/24/18 2:53 AM) BUN [7-22 mg/dL] 92 mg/dL (02/26/18 6:15 AM) 92 mg/dL (02/25/18 2:05 AM) 113 mg/dL *HI* (02/24/18 2:53 AM) Glucose Lvl [70-99 mg/dL] 6.0 g/dL *LOW* (02/23/18 2:33 AM) Total Protein [6.4-8.4 g/dL] 2.6 g/dL *LOW* (02/23/18 2:33 AM) Albumin Lvl [3.5-5.0 g/dL] 3.4 g/dL (02/23/18 2:33 AM) Globulin [2.7-4.2 g/dL] 0.8 (02/23/18 2:33 AM) A/G Ratio [0.7-1.6] 7.8 mg/dL *LOW* (02/26/18 6:15 AM) 7.0 mg/dL 4 *CRIT* (02/25/18 2:05 AM) 7.9 mg/dL *LOW* (02/24/18 2:53 AM) Calcium Lvl [8.5-10.5 mg/dL] 3.8 mg/dL (02/26/18 6:15 AM) 1.8 mg/dL *LOW* (02/24/18 2:53 AM) 1.9 mg/dL *LOW* (02/23/18 2:33 AM) Phosphorus [2.5-4.5 mg/dL] 2.0 mg/dL (02/26/18 6:15 AM) 1.9 mg/dL (02/25/18 2:05 AM) 2.3 mg/dL (02/24/18 2:53 AM) Magnesium Lvl [1.8-2.4 mg/dL] 63 unit/L (02/23/18 2:33 AM) ALT [0-65 unit/L] 82 unit/L *HI* (02/23/18 2:33 AM) AST [0-37 unit/L] 53 unit/L (02/23/18 2:33 AM) Alk Phos [39-136 unit/L] 1.3 mg/dL (02/23/18 2:33 AM) Bili Total [0.2-1.3 mg/dL] 0.5 mg/dL *HI* (02/23/18 2:33 AM) Bili Direct [0.0-0.3 mg/dL] 0.8 mg/dL (02/23/18 2:33 AM) Bili Indirect [0.0-1.0 mg/dL] 1.2 mMol/L (02/21/18 11:31 PM) 2.9 mMol/L *HI* (02/21/18 12:58 PM) Lactic Acid Lvl [0.5-2.2 mMol/L] 1Result Comment: The eGFR is calculated using [...] be mul tiplied by the estimated BMI. 2Result Comment: The eGFR is calculated using the [...] be mul tiplied by the estimated BMI. 3Result Comment: The eGFR is calculated using the [...] be mul tiplied by the estimated BMI. 4Result Comment: Critical Result(s) called to Miky Hancock at 02/25/2018 03:26 byJw. Read back OK. PARATHYROID PROFILE 1 2 3 Most recent to oldest [Reference Range]: 1.11 mMol/L (02/26/18 6:15 AM) 1.05 mMol/L (02/25/18 2:05 AM) 1.02 mMol/L *LOW* (02/24/18 2:53 AM) Ca Ion WB [1.05-1.25 mMol/L] 1.13 mMol/L (02/26/18 6:15 AM) 1.10 mMol/L (02/25/18 2:05 AM) 1.05 mMol/L (02/24/18 2:53 AM) Ca Norm WB [1.05-1.25 mMol/L] HEMATOLOGY 1 2 3 Most recent to oldest [Reference Range]: 7.2 K/CMM (02/26/18 6:15 AM) 10.9 K/CMM *HI* (02/25/18 2:05 AM) 10.3 K/CMM (02/24/18 2:53 AM) WBC [3.7-10.4 K/CMM] 2.41 M/CMM *LOW* (02/26/18 6:15 AM) 2.58 M/CMM *LOW* (02/25/18 2:05 AM) 2.55 M/CMM *LOW* (02/24/18 2:53 AM) RBC [4.70-6.10 M/CMM] 8.3 g/dL *LOW* (02/26/18 6:15 AM) 8.8 g/dL *LOW* (02/25/18 2:05 AM) 8.6 g/dL *LOW* (02/24/18 2:53 AM) Hgb [14.0-18.0 g/dL] 23.0 % *LOW* (02/26/18 6:15 AM) 24.9 % *LOW* (02/25/18 2:05 AM) 25.2 % *LOW* (02/24/18 2:53 AM) Hct [42.0-54.0 %] 95.5 fL *HI* (02/26/18 6:15 AM) 96.6 fL *HI* (02/25/18 2:05 AM) 98.5 fL *HI* (02/24/18 2:53 AM) MCV [80.0-94.0 fL] 34.4 pg *HI* (02/26/18 6:15 AM) 34.2 pg *HI* (02/25/18 2:05 AM) 33.6 pg *HI* (02/24/18 2:53 AM) MCH [27.0-31.0 pg] 36.0 g/dL (02/26/18 6:15 AM) 35.4 g/dL (02/25/18 2:05 AM) 34.1 g/dL (02/24/18 2:53 AM) MCHC [32.0-36.0 g/dL] 13.5 % (02/26/18 6:15 AM) 13.3 % (02/25/18 2:05 AM) 13.7 % (02/24/18 2:53 AM) RDW [11.5-14.5 %] 8.5 fL (02/26/18 6:15 AM) 8.8 fL (02/25/18 2:05 AM) 9.5 fL (02/24/18 2:53 AM) MPV [7.4-10.4 fL] 181 K/CMM (02/26/18 6:15 AM) 158 K/CMM (02/25/18 2:05 AM) 105 K/CMM *LOW* (02/24/18 2:53 AM) Platelet [133-450 K/CMM] 53.4 % (02/26/18 6:15 AM) 60.3 % (02/25/18 2:05 AM) 65.8 % (02/24/18 2:53 AM) Segs [45.0-75.0 %] 29.4 % (02/26/18 6:15 AM) 25.8 % (02/25/18 2:05 AM) 23.4 % (02/24/18 2:53 AM) Lymphocytes [20.0-40.0 %] 12.3 % *HI* (02/26/18 6:15 AM) 10.9 % (02/25/18 2:05 AM) 9.1 % (02/24/18 2:53 AM) Monocytes [2.0-12.0 %] 3.8 % (02/26/18 6:15 AM) 2.2 % (02/25/18 2:05 AM) 1.0 % (02/24/18 2:53 AM) Eosinophils [0.0-4.0 %] 1.1 % *HI* (02/26/18 6:15 AM) 0.8 % (02/25/18 2:05 AM) 0.7 % (02/24/18 2:53 AM) Basophils [0.0-1.0 %] 3.9 K/CMM (02/26/18 6:15 AM) 6.6 K/CMM (02/25/18 2:05 AM) 6.8 K/CMM (02/24/18 2:53 AM) Segs-Bands # [1.5-8.1 K/CMM] 2.1 K/CMM (02/26/18 6:15 AM) 2.8 K/CMM (02/25/18 2:05 AM) 2.4 K/CMM (02/24/18 2:53 AM) Lymphocytes # [1.0-5.5 K/CMM] 0.9 K/CMM *HI* (02/26/18 6:15 AM) 1.2 K/CMM *HI* (02/25/18 2:05 AM) 0.9 K/CMM *HI* (4/17/18 2:53 AM) Monocytes # [0.0-0.8 K/CMM] 0.3 K/CMM (02/26/18 6:15 AM) 0.2 K/CMM (02/25/18 2:05 AM) 0.1 K/CMM (02/24/18 2:53 AM) Eosinophils # [0.0-0.5 K/CMM] 0.1 K/CMM (02/26/18 6:15 AM) 0.1 K/CMM (02/25/18 2:05 AM) 0.1 K/CMM (02/24/18 2:53 AM) Basophils # [0.0-0.2 K/CMM] 14.6 seconds (02/26/18 6:15 AM) 14.6 seconds (02/25/18 2:06 AM) 14.9 seconds *HI* (02/24/18 2:53 AM) PT [12.0-14.7 seconds] 1.14 (02/26/18 6:15 AM) 1.14 (02/25/18 2:06 AM) 1.16 (02/24/18 2:53 AM) INR [0.85-1.17] 32.3 seconds (02/26/18 6:15 AM) 32.2 seconds (02/25/18 2:06 AM) 33.4 seconds (02/24/18 2:53 AM) PTT [22.9-35.8 seconds] Immunizations No data available for this section [...] 56; entered on: 02/22/18 Assessment and Plan Extracted from: Title: [facility] Progress Note Author: Jose Lawson MD Date: 02/26/18 Complex * Impression and Plan IMPRESSION: Resp insufficiency, improved Pulmonaerty edema, resolving Smoker Hypokalemia S/P CABG PLAN: No need for home O2 He can be D/C on few more days od LAsix and K replacement Out PT F/U for FTs Gave him my contact info Extracted from: Title: Clinical Document Author: Elmer Rockwell MD Date: SURGEON 1ST ASSISTANTDATE OFOPERATION Estefania Lema, [facility] 02/21/2018 PREOPERATIVE DIAGNOSIS:1. 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 Smith is a pleasant 57-year-old man with known risk factors for coronary artery disease. He recently complained of chest pain on exertion. Stress test was positive for myocardial ischemia (Rob-septal and apical bella). He underwent cardiac cath that demonstrated Left main coronary artery disease with critical subtotal LAD stenosis. 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 Due to the significance of the lesions, an IABP was inserted, and he was subsequently transferred to [facility] for further treatment. Due to the critical [...] artery was fashioned end-to side to the art eriotomy made in the left anterior descending coronary [...] were removed. Protamine sulfate was administered to reverse the anti-coagulated state. Temporary epicardial pacing wires [...] closed the incision. Elmer Rockwell M.D. Extracted from: Title: [facility] ICU Addendum Author: Dallin Awan MD Rafat e: 02/21/18 Impression and Plan Extracted from: Title: [facility] STS Heart Surgery Author: Dexter Marie MD Date: 02/20/18 Admission H&P Note Impression and Plan 57M with stemi OSH s/p cath transfferd f or CABG - plan for cabg with Dr. Rockwell in AM - NPO labs CXR consent in chart booked. STS Calculated Risk Score: Refer to: http://riskcalc.sts.org/ Does this patient meet criteria for Multidisciplinary Conference (STS Risk Score >4%): _ Yes _ No _ N/A
--- OUTSIDE RECORDS SUMMARY | 2020-06-16 15:14 | XMS REPORT | Summary of Care ---
Author Author MARLIN CAPELLAN M.D. Organization Unknown Address [facility] Phone Unavailable Care Team Providers Care [facility] Worker Name Role Phone SUSANA CAPELLAN M.D. Unavailable Unavailable WICHO MISHRA M.D. 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 Heart disease (429.9, I51.9) Status: Active Allergic rhinitis (477.9, J30.9) Status: Active Deviated nasal septum (470, J34.2) Status: Active Epistaxis (784.7, R04.0) Status: Active Medications Name Dates Details Aspir-Low 81 MG Oral Tablet Delayed Rele ase Active Atorvastatin Calcium TABS * Refills: 0 Active Clopidogrel Bisulfate TABS * Refills: 0 Active Lisinopril TABS * Refills: 0 Active Pantoprazole Sodium TBEC * Refills: 0 Active Metoprolol Tartrate 25 MG Oral Tablet * Refills: 0 Active Potassimin TABS * Refills: 0 Active Acetaminophen-Codeine 300-30 MG TABS * Refills: 0 Active Mometasone Furoate 50 MCG/ACT Nasal Suspension USE 1 SPRAY IN EACH NOSTRIL TWICE DAILY. * Quantity: 3 Refills: 6 WICHO MISHRA M.D. * Start : 28-May-2018 Active 17 GM Inhaler Allergies and Adverse Reactions Name Dates Details No Known Allergies (Allergy) Status: Act nakul Past Medical History Name Dates Details History of essential hypertension (V12.5 9, Z86.79) Status: Resolved Procedures Procedure Dates Details Procedures not documented Immunization Name Dates Details Immunizations not documented Family History Name Dates Details No pertinent family history (V49.89, Z78 .9) Comments: Other Status: Active Social History Name Dates Details - Status: Name Dates Details Former smoker Never smoker Vital Signs Date Test Result Details [id number] BP Systolic 121 mm[Hg] Status: BP Diastolic 86 mm[Hg] Status: Height 67 in Status: Weight 191.5625 lb Status: Body Mass Index Calculated 30 kg/m2 Status: Body Surface Area Calculated 1.99 m2 Status: Heart Rate 76 /min Status: [id number] BP Systolic 147 mm[Hg] Status: BP Diastolic 94 mm[Hg] Status: Weight 191 lb Status: Body Mass Index Calculated 29.92 kg/m2 Status: Body Surface Area Calculated 1.98 m2 Status: Heart Rate 73 /min Status: Temperature 97.3 f Status: Respiration Rate 14 /min Status: O2 SAT 98 % Status: Results Date Description Value Details Results not documented Plan of Care Name Dates Details Planned Observations Planned Goals not documented Planned Encounters Appointment; WICHO MISHRA M.D. 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 We will refill his Tylenol #3 to his local pharmacy. He is released to go back to work on 05/28, without restrictions. Return to clinic, as needed. Instructions Name Dates Details Instructions not documented Encounters Appointment; SUSANA CAPELLAN M.D. Encounter Diagnosis: Problem not documented On: 24-Mar-2018 10:00 Appointment; SUSANA CAPELLAN M.D. Encounter Diagnosis: Problem not documented On: 21-Apr-2018 10:00 Appointment; SUSANA CAPELLAN M.D. Encounter Diagnosis: Problem not documented On: 05-May-2018 9:45
--- OUTSIDE RECORDS SUMMARY | 2020-06-16 15:14 | XMS REPORT | Continuity of Care Document ---
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 [facility] [place] Respitory Rate 2018-02-26 14:00:00 [facility] [place] Respitory Rate 2018-02-26 13:00:00 [facility] [place] Systolic (mm Hg) 2018-02-26 13:00:00 Isaak rial [place] Diastolic (mm Hg) 2018-02-26 13:00:00 Mem orial [place] Systolic (mm Hg) 2018-02-26 12:00:00 Isaak rial [place] Diastolic (mm Hg) 2018-02-26 12:00:00 Mem orial [place] Temperature Oral (F) 2018-02-26 12:00:00 98.8 F [facility] Temperature Oral (F) 2018-02-26 09:00:00 99.0 F [facility] Temperature Oral (F) 2018-02-26 05:00:00 100.0 F [facility] Height 2018-02-22 00:47:00 170.18 cm [facility] [place] Height 2018-02-21 21:00:00 170.18 cm [facility] [place] Height 2018-02-21 17:48:00 170.18 cm [facility] Weight 2018-02-21 03:03:00 [facility] [place] BMI Calculated 2018-02-21 03:03:00 [facility] [place] Respitory Rate 2018-02-21 02:34:00 [facility] [place] Systolic (mm Hg) 2018-02-21 02:00:00 Isaak rial [place] Diastolic (mm Hg) 2018-02-21 02:00:00 Mem orial [facility] Respitory Rate 2018-02-21 02:00:00 [facility] [place] Systolic (mm Hg) 2018-02-21 01:45:00 Isaak rial [place] Diastolic (mm Hg) 2018-02-21 01:45:00 Mem orial [place] Respitory Rate 2018-02-21 01:45:00 [facility] Systolic (mm Hg) 2018-02-21 01:30:00 Isaak rial [place] Diastolic (mm Hg) 2018-02-21 01:30:00 Mem orial [place] Temperature Oral (F) 2018-02-21 01:00:00 98 F [facility] [place] Temperature Oral (F) 2018-02-20 20:17:00 97.7 F [facility] Height 2018-02-20 20:06:00 170.18 cm [facility] [place] Weight 2018-02-20 20:06:00 [facility] BMI Calculated 2018-02-20 20:06:00 [facility] [place] Temperature Oral (F) 2018-02-20 19:15:00 97.9 F [facility] [place] Weight 2018-02-20 15:35:00 [facility] Height 2018-02-20 15:35:00 170.18 cm [facility] BMI Calculated 2018-02-20 15:35:00 [facility] [place] Heart Rate 2018-02-20 15:35:00 [facility] [place] Procedures Procedure Date / Time Performed Performing Clinician [facility] e Appendectomy [facility] [place] Cardiac surgery procedure Memori al [facility] Operation<sup>1</sup> [facility] En[facility] Start Date/Time End Date/Time En[facility] ID Source 2018-12-27 10:42:00 2018-12-27 13:27:00 Outpatient Faisal Gaxiola U [place] [id number] 2018-12-27 10:42:00 2018-12-27 10:42:00 Emergency E MHSE MHSE [id number] 2018-05-28 09:30:00 2018-05-28 09:30:00 Appointment; WICHO MISHRA M.D. WICHO MISHRA M.D. [facility] Otorhinolaryngology [facility] [id number] [facility] 2018-05-06 22:58:00 2018-05-07 01:35:00 Outpatient Katie Pisano SE SE [id number] 2018-05-06 19:33:00 2018-05-06 22:41:00 Departed Emergency Room [facility] [id number] [facility] 2018-05-05 09:45:00 2018-05-05 09:45:00 Appointment; SUSANA ROCKWELL M .D. PORAT, EYAL, M.D. [facility] Cardiothoracic and Vascular Surgery [facility] [id number] [facility] 2018-04-21 10:00:00 2018-04-21 10:00:00 Appointment; SUSANA ROCKWELL M .D. PORAT, EYAL, M.D. [facility] UTP [id number] [facility] 2018-03-24 10:00:00 2018-03-24 10:00:00 Appointment; SUSANA ROCKWELL M .D. PORAT, EYAL, M.D. [facility] UTP [id number] [facility] 2018-03-02 17:19:00 2018-03-02 17:40:00 Departed Emergency Room [facility] [id number] [facility] 2018-02-20 22:03:00 2018-02-26 01:20:00 Outpatient Susana Rockwell [facility] [id number] 2018-02-20 10:33:00 2018-02-20 21:55:00 Outpatient Elliot Cox [facility] [id number] 2018-02-20 18:46:00 2018-02-20 18:46:00 Outpatient Susana Rockwell [facility] [id number] Results Test Description Test Time Test Comments Results Result Comments Source HEMATOLOGY 2018-05-07 05:51:00 0.9 [facility] HEMATOLOGY 2018-05-07 05:51:00 0.2 [facility] [place] HEMATOLOGY 2018-05-07 05:51:00 0.2 [facility] [place] HEMATOLOGY 2018-05-07 05:51:00 9.0 [facility] [place] HEMATOLOGY 2018-05-07 05:51:00 2.8 [facility] [place] HEMATOLOGY 2018-05-07 05:51:00 1.5 Memor ial [place] HEMATOLOGY 2018-05-07 05:51:00 1.2 Memor [facility] [place] HEMATOLOGY 2018-05-07 05:51:00 68.9 Memor [facility] [place] HEMATOLOGY 2018-05-07 05:51:00 21.3 Memor [facility] [place] HEMATOLOGY 2018-05-07 05:51:00 7.1 Memor [facility] [place] HEMATOLOGY 2018-05-07 05:51:00 Test Item PT (test code = PT) 14.8 s 12.0-14.7 [facility] WpbqqyrQBVHFUKDUA0874-68-77 05:51:00* Test Item Value Reference Range Interpretation Comments INR (test code = INR) 1.16 1 0.85-1.17 [facility] UplnsjvCOFEURCDYE8044-54-40 05:51:0033.2[facility] 2018-05-07 05:51:0014.6[facility] BkwcgctTJJPMHVULV9986-08-72 05:51:00* Test Item Value Reference Range Interpretation Comments MCH (test code = MCH) 29.7 pg 27.0-31.0 [facility] EwuqrmvYVGZOBCDKO3969-01-09 05:51:57828Qqhviozk HermannHEMATOLOGY 2018-05-07 05:51:009.0[facility]orial YnyewgdMQQOSATLWL5155-67-67 05:51:003.96[facility] CorgqfdMGXXZORQGM9147-46-68 05:51:0011.7[facility] LspoktsGMQIRTWHOW8309-03-85 05:51:0013.1[facility] GzstyrtWTBSVRCRJY0734-19-39 05:51:0035.4[facility] [place] BJIMEDXYFY2494-33-15 05:51:0089.4[facility] VqhzlnfGJBBBJJIEF6049-50-74 05:51:00* Test Item Value Reference Range Interpretation Comments PTT (test code = PTT) 27.7 s 22.9-35.8 [facility] Jqypp5555-86-35 21:44:00* Test Item Value Reference Range Interpretation Comments Ethyl Alcohol Level (test code = 5643-2) 98.3 0.0-10.0 [facility] 21:40:00* Test Item Value Reference Range Interpretation Comments Hemoglobin (test code = 20195-2) 12.9 14.0-18.0 L [facility]ematocrit2018-06-27 21:40:00* Test Item Value Reference Range Interpretation Comments Hematocrit (test code = 4544-3) 37.4 38.2-49.6 L [facility] TexasCreatine Kinase NQ3528-49-90 20:35:00* Test Item Value Reference Range Interpretation Comments Creatine Kinase MB (test code = 20758-9) 0.70 0-5.0 [facility] TexasTroponin A0779-84-17 20:35:00* Test Item Value Reference Range Interpretation Comments Troponin I (test code = BKX2363) -0.001 0-0.300 [facility] Xxwji3952-43-85 20:29:00* Test Item Value Reference Range Interpretation Comments Sodium Level (test code = 2951-2) 139 136-145 [facility]Potassium Upojg0512-03-17 20:29:00* Test Item Value Reference Range Interpretation Comments Potassium Level (test code = 2823-3) 3.9 3.5-5.1 [facility] TexasChloride Mhchk1730-48-14 20:29:00* Test Item Value Reference Range Interpretation Comments Chloride Level (test code = 2075-0) 108 98-107 H [facility] TexasCarbon Dioxide Ynajf6553-38-11 20:29:00* Test Item Value Reference Range Interpretation Comments Carbon Dioxide Level (test code = 2028-9) 18 22-29 L [facility] TexasAnion Ajx6850-77-85 20:29:00* Test Item Value Reference Range Interpretation Comments Anion Gap (test code = 51199-1) 16.9 8-16 H [facility] TexasBlood Urea Kkrhalnu2280-48-51 20:29:00* Test Item Value Reference Range Interpretation Comments Blood Urea Nitrogen (test code = 3094-0) 8 7-26 [facility] TexasCreatinine2018-06-27 20:29:00* Test Item Value Reference Range Interpretation Comments Creatinine (test code = 2160-0) 0.69 0.72-1.25 L [facility] TexasBUN/Creatinine Bjisi4687-47-56 20:29:00* Test Item Value Reference Range Interpretation Comments BUN/Creatinine Ratio (test code = 3097-3) 12 6-25 [facility] TexasEstimat Glomerular Filtration Rate 2018-05-06 20:29:00* Test Item Value Reference Range Interpretation Comments Estimat Glomerular Filtration Rate (test code = 33252-9) 60- >60 Ranges were taken from the National Kidney Disease Education Program and the [facility] Kidney Foundation literature.Reference ranges:60 or greater: Icvyyv83-14 ( for 3 consecutive months): Chronic kidney disease 15 or less: Kidney failureWoman's Hospital of TexasGlucose Jafsq5001-86-58 20:29:00* Test Item Value Reference Range Interpretation Comments Glucose Level (test code = IAO5848) 97 74-118 [facility] TexasCalcium Avddy0382-58-04 20:29:00* Test Item Value Reference Range Interpretation Comments Calcium Level (test code = 64880-1) 9.4 8.4-10.2 [facility] TexasTotal Jheklewjt7775-93-09 20:29:00* Test Item Value Reference Range Interpretation Comments Total Bilirubin (test code = 1975-2) 0.4 0.2-1.2 [facility] TexasAspartate Amino Transf (AST/SGOT) 2018-05-06 20:29:00* Test Item Value Reference Range Interpretation Comments Aspartate Amino Transf (AST/SGOT) (test code = Aspartate Amino Transf (AST/SGOT)) 49 5-34 H [facility] TexasAlanine Aminotransferase (ALT/SGPT) 2018-05-06 20:29:00* Test Item Value Reference Range Interpretation Comments Alanine Aminotransferase (ALT/SGPT) (test code = 1742-6) 43 0-55 [facility] TexasTotal Lbtvwbg5680-45-23 20:29:00* Test Item Value Reference Range Interpretation Comments Total Protein (test code = 2885-2) 8.3 6.5-8.1 H [facility] TexasAlbumin2018-06-27 20:29:00* Test Item Value Reference Range Interpretation Comments Albumin (test code = 1751-7) 3.9 3.5-5.0 [facility] TexasGlobulin2018-06-27 20:29:00* Test Item Value Reference Range Interpretation Comments Globulin (test code = 28912-1) 4.4 2.3-3.5 H [facility] TexasAlbumin/Globulin Enytr5691-68-82 20:29:00 * Test Item Value Reference Range Interpretation Comments Albumin/Globulin Ratio (test code = 1759-0) 0.9 0.8-2.0 [facility] TexasAlkaline Wlxwvncronc7971-87-07 20:29:00* Test Item Value Reference Range Interpretation Comments Alkaline Phosphatase (test code = 6768-6) 104 40-150 [facility] TexasCreatine Zfellk1609-35-64 20:29:00* Test Item Value Reference Range Interpretation Comments Creatine Kinase (test code = 2157-6) 70 30-200 [facility] TexasProthrombin Ptkz7727-41-16 20:24:00* Test Item Value Reference Range Interpretation Comments Prothrombin Time (test code = 5902-2) 13.8 11.9-14.5 [facility] TexasProthromb Time International Ratio 2018-05-06 20:24:00* Test Item Value Reference Range Interpretation Comments Prothromb Time International Ratio (test code = 6301-6) 1.15 Oral Anticoagulant Therapy INR Values:1. Low Intensity Therapy 1.5 - 2.02 . Moderate Intensity Therapy 2.0 - 3.03. High Intensity Therapy(1) 2.5 - 3. 54. High Intensity Therapy(2) 3.0 - 4.05. Panic Value INR > 5.0 [facility] TexasActivated Partial Thromboplast Time 2018-05-06 20:24:00* Test Item Value Reference Range Interpretation Comments Activated Partial Thromboplast Time (test code = 10884-2) 26.2 23.8-35.5 [facility] TexasWhite Blood Kvzvb6182-89-03 20:23:00* Test Item Value Reference Range Interpretation Comments White Blood Count (test code = 6690-2) 11.44 4.8-10.8 H [facility] TexasRed Blood Vfyue1042-15-58 20:23:00* Test Item Value Reference Range Interpretation Comments Red Blood Count (test code = 789-8) 4.27 4.3-5.7 L [facility] TexasMean Corpuscular Xwpbyz9410-81-41 20:23:00* Test Item Value Reference Range Interpretation Comments Mean Corpuscular Volume (test code = 787-2) 89.9 81-99 [facility] TexasMean Corpuscular Gyvxfuicvg1464-67-23 20:23:00* Test Item Value Reference Range Interpretation Comments Mean Corpuscular Hemoglobin (test code = 785-6) 30.0 28-32 [facility] TexasMean Corpuscular Hemoglobin Concent 2018-05-06 20:23:00* Test Item Value Reference Range Interpretation Comments Mean Corpuscular Hemoglobin Concent (test code = 786-4) 33.3 31-35 [facility] TexasRed Cell Distribution Bcizg6617-06-52 20:23:00* Test Item Value Reference Range Interpretation Comments Red Cell Distribution Width (test code = 40698-1) 13.8 11.7 -14.4 [facility] TexasPlatelet Irbzu8329-49-85 20:23:00* Test Item Value Reference Range Interpretation Comments Platelet Count (test code = 777-3) 211 140-360 [facility] TexasNeutrophils (%) (Auto)2018-05-06 20:23:00 * Test Item Value Reference Range Interpretation Comments Neutrophils (%) (Auto) (test code = 30536-7) 46.2 38.7-80.0 [facility] TexasLymphocytes (%) (Auto)2018-05-06 20:23:00 * Test Item Value Reference Range Interpretation Comments Lymphocytes (%) (Auto) (test code = 736-9) 41.4 18.0-39.1 H [facility] TexasMonocytes (%) (Auto)2018-05-06 20:23:00* Test Item Value Reference Range Interpretation Comments Monocytes (%) (Auto) (test code = 5905-5) 7.8 4.4-11.3 [facility] TexasEosinophils (%) (Auto)2018-05-06 20:23:00 * Test Item Value Reference Range Interpretation Comments Eosinophils (%) (Auto) (test code = 713-8) 3.4 0.0-6.0 [facility] TexasBasophils (%) (Auto)2018-05-06 20:23:00* Test Item Value Reference Range Interpretation Comments Basophils (%) (Auto) (test code = 706-2) 1.0 0.0-1.0 [facility] TexasIM GRANULOCYTES %2018-05-06 20:23:00* Test Item Value Reference Range Interpretation Comments IM GRANULOCYTES % (test code = IM GRANULOCYTES %) 0.2 0.0- 1.0 [facility] TexasNeutrophils # (Auto)2018-05-06 20:23:00* Test Item Value Reference Range Interpretation Comments Neutrophils # (Auto) (test code = 751-8) 5.3 2.1-6.9 [facility] TexasLymphocytes # (Auto)2018-05-06 20:23:00* Test Item Value Reference Range Interpretation Comments Lymphocytes # (Auto) (test code = 59692-0) 4.7 1.0-3.2 H [facility] TexasMonocytes # (Auto)2018-05-06 20:23:00* Test Item Value Reference Range Interpretation Comments Monocytes # (Auto) (test code = 742-7) 0.9 0.2-0.8 H [facility] TexasEosinophils # (Auto)2018-05-06 20:23:00* Test Item Value Reference Range Interpretation Comments Eosinophils # (Auto) (test code = 711-2) 0.4 0.0-0.4 [facility] TexasBasophils # (Auto)2018-05-06 20:23:00* Test Item Value Reference Range Interpretation Comments Basophils # (Auto) (test code = 704-7) 0.1 0.0-0.1 [facility] TexasAbsolute Immature Granulocyte (auto 2018-05-06 20:23:00* Test Item Value Reference Range Interpretation Comments Absolute Immature Granulocyte (auto (braulio t code = Absolute Immature Granulocyte (auto) 0.02 0-0.1 [facility] TexasELECTROLYTES2018-04-19 16:31:003.8 [facility]annCHEM NSAJQ5995-40-77 11:15:003.8[facility] HermannCHEM PANEL 2018-02-26 11:15:13206Pijqrxle HermannCHEM NIUDN5877-70-58 11:15:007.8[facility] HermannCHEM KBFDW7816-88-08 11:15:000.62[facility] HermannCHEM JZGGW7325-31-84 11:15:0013[facility] HermannCHEM OQDZO7047-34-91 11:15:21324Rzoyaldr HermannCHEM SYLDC0321-18-20 11:15:0092[facility] HermannCHEM QQUKA4748-43-28 11:15:0013.0 [facility]annCHEM WLRZI4749-82-75 11:15:0024[facility] HermannCHEM PANEL 2018-02-26 11:15:69101Gkmulvkn HermannCHEM EPPXT6677-03-61 11:15:003.0[facility] HermannCHEM CDXZD7547-79-02 11:15:002.0[facility] DrobdcmNGCSDDQKAX2965-27-45 11:15:0023.0[facility] TouznbvIEVGHUXUJH3914-09-88 11:15:0013.5[facility] [place] GBJAFXNLND6833-59-98 11:15:00* Test Item Value Reference Range Interpretation Comments MCH (test code = MCH) 34.4 pg 27.0-31.0 Memorial EhxlotgGGDUCQXIRZ6683-28-09 11:15:0095.5[facility] HermannHEMATOLOGY 2018-02-26 11:15:35109Fxknwylg LknypgoWPRIJFDGAN6644-29-27 11:15:0036.0[facility] WjighobMLCJPNRJAR4104-72-81 11:15:008.5[facility]orial QsyixjyRPXIJJZQCU0433-72-11 11:15:008.3[facility] TzisxhoUYBVWMORJE9672-76-16 11:15:002.41[facility] [place] GGLXQOIOPL6707-75-84 11:15:007.2[facility] GoyczvgQNPNVYUUGE4994-16-71 11:15:00* Test Item Value Reference Range Interpretation Comments PTT (test code = PTT) 32.3 s 22.9-35.8 [facility] AhwzmunEHUSZUWBQP6506-84-37 11:15:00* Test Item Value Reference Range Interpretation Comments PT (test code = PT) 14.6 s 12.0-14.7 Memorial HfzphznDEJTOYQDYQ6843-45-17 11:15:00* Test Item Value Reference Range Interpretation Comments INR (test code = INR) 1.14 1 0.85-1.17 Memorial ZczjhqvXJRMYSORCX1095-14-45 11:15:0053.4[facility] HermannHEMATOLOGY 2018-02-26 11:15:0029.4[facility] FavsepdUSLZMPVYTS8875-62-48 11:15:0012.3[facility]orial MmqhgkoXKKPWJKOAI7863-10-44 11:15:000.3[facility] PkszismPFTMKIJNIC8772-05-38 11:15:000.9[facility] LciulucNJRJJXPCJB5510-18-83 11:15:001.1[facility] SWHCYDECJE2013-81-79 11:15:002.1[facility] PajyybgLADYAYUFRJ0789-39-65 11:15:003.8 Memorial QtctssaHAUGVTOZOE9886-24-70 11:15:003.9[facility] HermannHEMATOLOGY 2018-02-26 11:15:000.1[facility] HermannPARATHYROID XYFJEJS3244-00-57 11:15:001.13 [facility] HermannPARATHYROID KNXNLZF2780-37-11 11:15:001.11[facility] EIMQAEDIMZ9133-11-46 07:06:00* Test Item Value Reference Range Interpretation Comments INR (test code = INR) 1.14 1 0.85-1.17 [facility] MdmgobnDEVSRCYTPB0920-76-68 07:06:00* Test Item Value Reference Range Interpretation Comments PTT (test code = PTT) 32.2 s 22.9-35.8 Memorial GytkvnuZVLSQSGDCK6940-85-54 07:06:00* Test Item Value Reference Range Interpretation Comments PT (test code = PT) 14.6 s 12.0-14.7 [facility] HermannCHEM KJGJJ4386-69-26 07:05:55956Pfisvnki HermannCHEM PANEL 2018-02-25 07:05:0014Mem[facility] HermannCHEM QATON3661-25-75 07:05:0016.2[facility] HermannCHEM UIPHH8867-18-53 07:05:19470Uckjxwre HermannCHEM GECXU9528-83-48 07:05:007.0[facility] HermannCHEM QTTBP5391-68-48 07:05:003.2[facility] HermannCHEM KTGKT4020-28-09 07:05:0019[facility] HermannCHEM GABTU1706-60-28 07:05:04724 [facility]annCHEM GFSHX4764-56-79 07:05:000.52[facility] HermannCHEM PANEL 2018-02-25 07:05:0092[facility] HermannCHEM GHPFR5617-61-00 07:05:001.9[facility] LckxdpySRQBMEYRFN0335-28-30 07:05:002.8[facility]orial PnaovzqHBHLPFZBOK3386-86-85 07:05:000.8[facility]orial SxmkpjyFUWLVLHFJG5681-69-75 07:05:006.6[facility] IVCDHUEMBQ6011-73-73 07:05:002.2[facility] ZyiawelGPRWMFUVCX0254-05-69 07:05:000.2 Memorial SrglthfMTMMOANVEQ0120-60-12 07:05:000.1[facility] HermannHEMATOLOGY 2018-02-25 07:05:001.2[facility] YxdjyscPFRGXUXROW9449-23-33 07:05:0060.3[facility] DextnnfEZBRRMZOSG4106-16-08 07:05:0010.9[facility]orial RcozzsjWWPVTQLGBU1685-02-32 07:05:0025.8[facility] HwdqsueYCNBVXXXWY0671-95-90 07:05:0013.3[facility] NHGPZZNQJH1877-17-86 07:05:31306Xuyqezhq JuoigdjJIFCPZBOTL7608-36-85 07:05:008.8 [facility] VoduwahFQJMXQFGIT4700-07-59 07:05:008.8[facility] HermannHEMATOLOGY 2018-02-25 07:05:0035.4[facility] HakuovwLKDWQJSHCS5285-03-51 07:05:0024.9[facility] OzgtpgyBYKKPFVOUR6531-02-90 07:05:00* Test Item Value Reference Range Interpretation Comments MCH (test code = MCH) 34.2 pg 27.0-31.0 [facility] BmqbrtpRMBKIGIQTJ2346-57-01 07:05:0096.6[facility] HermannHEMATOLOGY 2018-02-25 07:05:002.58[facility] KrsftxtHPGFIGVTGT5803-10-09 07:05:0010.9[facility] HermannPARATHYROID LTIBYDW4286-94-09 07:05:001.05[facility] HermannPARATHYROID SCKENVL0766-46-21 07:05:001.10[facility] HermannBLOOD BANK VBOYTQE8691-69-63 07:53:00Negative (02/24/18 2:53 AM)[facility] HermannCHEM UCVBU6045-82-42 07:53:00 1.8[facility] HermannCHEM OAUFD2067-11-13 07:53:58981Rikieqan HermannCHEM PANEL 2018-02-24 07:53:000.61[facility] HermannCHEM WTIXJ7229-65-64 07:53:98469Owkauqqj HermannCHEM EDBXW8169-87-92 07:53:56527Odhdbgkc HermannCHEM FXKWR2901-21-98 07:53:0016[facility] HermannCHEM NXZRA2884-38-18 07:53:0020[facility] HermannCHEM CZMKC4625-14-48 07:53:007.9[facility] HermannCHEM RLBMU4001-07-44 07:53:87482 [facility] HermannCHEM QOSTO0763-90-55 07:53:0015.8[facility] HermannCHEM PANEL 2018-02-24 07:53:002.3[facility] PswukqvMWWJENBNRL7256-09-31 07:53:0023.4[facility] GjqnsjxLEZYYWEYUI9210-11-17 07:53:0065.8[facility] AdioryxBAMXITENDC5898-28-28 07:53:002.4[facility] RqvhzwiQCMBJJJLKJ8834-78-39 07:53:006.8[facility] ICZYALEJWE3288-06-47 07:53:001.0[facility] KbygcypBJFTSQHPCB7148-26-55 07:53:000.7 Memorial CuefxcjNBKXMQBUGE8407-34-12 07:53:009.1[facility] HermannHEMATOLOGY 2018-02-24 07:53:000.1[facility] SnblgghJBBPSQYITZ7185-63-23 07:53:000.1[facility] MrlqneqUGRNICBGVT2064-23-32 07:53:000.9[facility] ApkanznNLJNQRBLUS1078-58-39 07:53:00* Test Item Value Reference Range Interpretation Comments PTT (test code = PTT) 33.4 s 22.9-35.8 [facility] RckmxikGBVZBHJKMO8683-13-36 07:53:00* Test Item Value Reference Range Interpretation Comments INR (test code = INR) 1.16 1 0.85-1.17 [facility] MzncuclHVAOIDZTSC9104-94-33 07:53:00* Test Item Value Reference Range Interpretation Comments PT (test code = PT) 14.9 s 12.0-14.7 [facility]EmpnkubCQJRMUICLZ0836-87-06 07:53:0013.7[facility]annHEMATOLOGY 2018-02-24 07:53:0034.1[facility] IffpedeOBNTYGOKCU6631-98-07 07:53:97790Jakrgtqe HcaknumBZLVFHKEGW2528-76-03 07:53:009.5[facility] KpioqhwUNMOALBMRR5378-24-50 07:53:0010.3[facility] GenedkcKIPYLUWOUE5084-91-52 07:53:002.55[facility] VQRVTOPAQW3481-59-94 07:53:00* Test Item Value Reference Range Interpretation Comments MCH (test code = MCH) 33.6 pg 27.0-31.0 [facility] EfxrbqcPBQYJKDNVE5462-48-73 07:53:0098.5[facility]annHE[facility]OLOGY 2018-02-24 07:53:0025.2[facility] HzmophlLWFDNOJFSK8627-53-35 07:53:008.6[facility] HermannPARATHYROID WSXIWIX6672-74-74 07:53:001.05[facility]annPARATHYROID IMORHXF6540-85-17 07:53:001.02[facility]annCHEM LQEDC9614-86-59 07:33:001.9 [facility]annCHEM DCUKF3937-81-37 07:33:003.4[facility]annCHEM PANEL 2018-02-23 07:33:00* Test Item Value Reference Range Interpretation Comments A/G Ratio (test code = A/G Ratio) 0.8 1 0.7-1.6 [facility] [id number] 07:33:000.8[facility]annCHE[facility] PANEL 2018-02-23 07:33:001.3[facility] LBRFA8106-18-22 07:33:000.5[facility] TPNKP6581-09-00 07:33:002.6[facility]CHE[facility] ENZZO5255-10-55 07:33:006.0[facility] CVVNC9800-59-92 07:33:0063[facility] AJESW0637-72-13 07:33:0082[facility] STLLI4596-37-31 07:33:0053 [facility] GFPTR3011-47-31 04:31:001.2[facility]annCHE[facility] PANEL 2018-02-21 17:58:002.9[facility] RQBIKKB4907-80-09 12:59:00 Product available (02/21/18 7:59 AM)[facility] UCVDLZC1686-19-59 12:58:00Product available (02/21/18 7:58 AM)[facility] RESULTS 2018-02-21 04:12:00Product available (02/20/18 11:12 PM)[facility] SZGHMNG8232-29-49 03:08:00Negative (02/20/18 10:08 PM)[facility] OKLIGIXVDV1741-79-59 00:40:00* Test Item Value Reference Range Interpretation Comments PTT (test code = PTT) 189.0 s 22.9-35.8 [facility] UmztntrMYKIQHQCLG1732-19-89 00:40:00* Test Item Value Reference Range Interpretation Comments INR (test code = INR) 1.32 1 0.85-1.17 [facility] LvfwtbpQKGRCIWZEY5353-21-47 00:40:00* Test Item Value Reference Range Interpretation Comments PT (test code = PT) 16.5 s 12.0-14.7 [facility] HeyjhhkIPZLUNKUYZ8508-50-60 00:40:009.3[facility]annHEMATOLOGY 2018-02-21 00:40:40174Deaajnuz DrjysyvKBKOLJPGQG8171-42-50 00:40:0013.6[facility] CzzkxrsKQAJOEBJYB6928-78-10 00:40:0034.8[facility] GooswubMLIKYDLLGQ7305-25-61 00:40:0095.6[facility] MoodpllXYPKRNDVNE0327-30-28 00:40:00* Test Item Value Reference Range Interpretation Comments MCH (test code = MCH) 33.2 pg 27.0-31.0 [facility] ZpxwkmtTFJHHFBXAZ4134-47-43 00:40:004.44[facility]annHEMATOLOGY 2018-02-21 00:40:0042.4[facility] UpqbtueMKESREBOSG7208-56-83 00:40:0014.8[facility] OhpxfimQLDOJHTGKG3776-84-71 00:40:0011.0[facility] FpctpcfIZEENIFFSW7834-73-61 00:40:0050.9[facility] PtswmyxXDAFXOZZXP4760-27-81 00:40:0036.5[facility] LAFNOWXJPI8904-61-69 00:40:007.7[facility] GjbhmkxBCHQCVJPQT7000-94-60 00:40:003.5 [facility] RvydjmsXLAXUQCUYT7665-10-27 00:40:000.2[facility]annHEMATOLOGY 2018-02-21 00:40:000.4[facility] NwithmbNXHQCPNJEO1718-90-55 00:40:000.8[facility] CgwmacfBJOHFMCVMN9611-49-87 00:40:004.0[facility] NybpasgASJKVXRYCD1376-48-72 00:40:005.6[facility] UcgnzesRSHLCCKXYD0702-51-33 00:40:001.4[facility] BACTERIAL - ZOTIIRSQ1693-35-31 20:04:00Negative (02/20/18 3:04 PM)[facility]annCARDIAC YSBWUKM2013-77-52 15:53:41519Eidzovyl HermannCARDIAC ENZYMES 2018-02-20 15:53:001.1[facility]annCARDIAC UYVIWPM3128-96-00 15:53:00* Test Item Value Reference Range Interpretation Comments CK MB Index (test code = CK MB Index) 0.9 1 <=2.5 [facility] GWQUVHX5283-35-35 15:53:000.62[facility]annCHEM PANEL 2018-02-20 15:53:0095[facility]annCHE[facility] SQCAR6930-37-00 15:53:00* Test Item Value Reference Range Interpretation Comments B/C Ratio (test code = B/C Ratio) 16 1 6-25 [facility]CHE[facility] JYRSV1275-63-86 15:53:001.0[facility]annCHEM PANEL 2018-02-20 15:53:0013.1[facility]annCHE[facility] RQTWX5775-02-16 15:53:00* Test Item Value Reference Range Interpretation Comments A/G Ratio (test code = A/G Ratio) 0.8 1 0.7-1.6 [facility]CHE[facility] KWIPL0988-41-86 15:53:004.8[facility]annCHEM PANEL 2018-02-20 15:53:69034Zzizpxtz HermannCHEM NAMGS7621-56-04 15:53:003.9[facility]annCHEM UYYZO9885-53-41 15:53:0085[facility]annCHEM WVOEZ8205-63-15 15:53:28726Caushntk HermannCHEM BZHVK8736-52-29 15:53:60600Yaoanyoj HermannCHEM TVRTA7818-17-89 15:53:0025[facility]annCHE[facility] DLQOG3627-16-29 15:53:009.3 [facility]CHE[facility] GSNTZ5393-18-06 15:53:008.7[facility]annCHEM PANEL 2018-02-20 15:53:000.90[facility]annCHEM IZXRW5971-51-35 15:53:21010Rnrnmqli HermannCHEM PGDFU4990-59-80 15:53:004.1[facility]annCHEM TGLSF1447-42-95 15:53:0014[facility]annCHEM RIEQN9095-20-53 15:53:34550Gmwjjuaa Michele VARBNDZLVE7463-20-79 15:53:009.2[facility] KguwzjpNWAXHLNEYJ0550-20-05 15:53:41136 [facility] FtawlhcTCWMYRYMRY2737-96-59 15:53:004.73[facility]annHEMATOLOGY 2018-02-20 15:53:0094.9[facility] AamzofrTNDYNCUEIX7265-24-55 15:53:0044.9[facility] ThknknbCXVGXUYUVF0044-54-00 15:53:0013.7[facility] JgbxmlfDUDUBVFSQA3521-17-82 15:53:0036.6[facility] WphyewaYDHFXPZKVR3615-02-53 15:53:0010.7[facility] KNVWLRTXES3920-48-93 15:53:0016.4[facility] DadzevkKNQKOROPYA4130-63-12 15:53:00* Test Item Value Reference Range Interpretation Comments MCH (test code = MCH) 34.7 pg 27.0-31.0 [facility] VhklwniMPENNFTNGG5056-36-52 15:53:001.4[facility]annHEMATOLOGY 2018-02-20 15:53:006.1[facility] AlybsasAPJYVSQQEF9062-33-69 15:53:003.4[facility] DwhidjcHLINRVLEWM9928-21-12 15:53:000.8[facility] JonmgnxPKMFFHPBOJ3928-47-35 15:53:000.4[facility] RdqttfgYVPSIRMCDW9713-99-21 15:53:000.1[facility] CGUXKGOVZW4173-02-36 15:53:007.1[facility] JslnbeoNECNIDACXT1415-63-09 15:53:00 56.6[facility] SbhvvoyLHQPWNKVLK5758-02-10 15:53:0031.6[facility] 2018-02-20 15:53:003.3[facility] YkkgpdvCHPETJQUUK9891-17-49 15:53:00* Test Item Value Reference Range Interpretation Comments INR (test code = INR) 1.14 1 0.85-1.17 [facility]XPLVGNG4151-[facility]-25 15:53:00* Test Item Value Reference Range Interpretation Comments PTT (test code = PTT) 28.5 s 22.9-35.8 [facility]UuuaoscIYSINUKJOQ4761-11-84 15:53:00* Test Item Value Reference Range Interpretation Comments PT (test code = PT) 14.6 s 12.0-14.7 [facility]
[2020-06-16] MEDS ORDERED: SODIUM CHLORIDE 0.9% 1000ML 1,000 ML IV SCH (15:15)
[2020-06-16] MEDS ORDERED: DIPHENHYDRAMINE HCL INJ 50 MG/ML VIAL IV PRN (15:15)
[2020-06-16] MEDS ORDERED: PHYTONADIONE 10 MG/ML AMP SC ONE (15:15)
[2020-06-16] MEDS ORDERED: ONDANSETRON HCL INJ 2MG/ML 2ML 2 MG/ML VIAL IV PRN (15:15)
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
--- OUTSIDE RECORDS SUMMARY | 2020-06-16 15:47 | XMS REPORT | Continuity of Care Document ---
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 Urea Nitrogen (test code = 3094-0) 8 7-26 [facility] LakeCreatinine2018-06-27 20:29:00* Test Item Value Reference Range Interpretation Comments Creatinine (test code = 2160-0) 0.69 0.72-1.25 L [facility] LakeBUN/Creatinine Sapkc5988-60-74 20:29:00* Test Item Value Reference Range Interpretation Comments BUN/Creatinine Ratio (test code = 3097-3) 12 6-25 [facility] LakeEstimat Glomerular Filtration Rate 2018-05-06 20:29:00* Test Item Value Reference Range Interpretation Comments Estimat Glomerular Filtration Rate (test code = 84344-5) 60- >60 Ranges were taken from the National Kidney Disease Education Program and the [facility] Kidney Foundation literature.Reference ranges:60 or greater: Cuieyd34-88 ( for 3 consecutive months): Chronic kidney disease 15 or less: Kidney failureHCA Houston Healthcare Clear LakeGlucose Zbrmb7308-21-90 20:29:00* Test Item Value Reference Range Interpretation Comments Glucose Level (test code = YLX4368) 97 74-118 [facility] LakeCalcium Ltdzc2554-34-41 20:29:00* Test Item Value Reference Range Interpretation Comments Calcium Level (test code = 13925-4) 9.4 8.4-10.2 [facility] LakeTotal Ainfocrlg0090-83-20 20:29:00* Test Item Value Reference Range Interpretation Comments Total Bilirubin (test code = 1975-2) 0.4 0.2-1.2 [facility] LakeAspartate Amino Transf (AST/SGOT) 2018-05-06 20:29:00* Test Item Value Reference Range Interpretation Comments Aspartate Amino Transf (AST/SGOT) (test code = Aspartate Amino Transf (AST/SGOT)) 49 5-34 H [facility] LakeAlanine Aminotransferase (ALT/SGPT) 2018-05-06 20:29:00* Test Item Value Reference Range Interpretation Comments Alanine Aminotransferase (ALT/SGPT) (test code = 1742-6) 43 0-55 [facility] LakeTotal Eqdaniv3356-85-86 20:29:00* Test Item Value Reference Range Interpretation Comments Total Protein (test code = 2885-2) 8.3 6.5-8.1 H [facility] LakeAlbumin2018-06-27 20:29:00* Test Item Value Reference Range Interpretation Comments Albumin (test code = 1751-7) 3.9 3.5-5.0 [facility] LakeGlobulin2018-06-27 20:29:00* Test Item Value Reference Range Interpretation Comments Globulin (test code = 93809-6) 4.4 2.3-3.5 H [facility] LakeAlbumin/Globulin Cswnk5241-10-48 20:29:00 * Test Item Value Reference Range Interpretation Comments Albumin/Globulin Ratio (test code = 1759-0) 0.9 0.8-2.0 [facility] LakeAlkaline Ythrrothtrx2648-19-74 20:29:00* Test Item Value Reference Range Interpretation Comments Alkaline Phosphatase (test code = 6768-6) 104 40-150 [facility] LakeCreatine Knfjxk2981-90-16 20:29:00* Test Item Value Reference Range Interpretation Comments Creatine Kinase (test code = 2157-6) 70 30-200 [facility] LakeProthrombin Vnkq4065-44-66 20:24:00* Test Item Value Reference Range Interpretation Comments Prothrombin Time (test code = 5902-2) 13.8 11.9-14.5 [facility] LakeProthromb Time International Ratio 2018-05-06 20:24:00* Test Item Value Reference Range Interpretation Comments Prothromb Time International Ratio (test code = 6301-6) 1.15 Oral Anticoagulant Therapy INR Values:1. Low Intensity Therapy 1.5 - 2.02 . Moderate Intensity Therapy 2.0 - 3.03. High Intensity Therapy(1) 2.5 - 3. 54. High Intensity Therapy(2) 3.0 - 4.05. Panic Value INR > 5.0 [facility] LakeActivated Partial Thromboplast Time 2018-05-06 20:24:00* Test Item Value Reference Range Interpretation Comments Activated Partial Thromboplast Time (test code = 75160-9) 26.2 23.8-35.5 [facility] LakeWhite Blood Clduy0873-23-65 20:23:00* Test Item Value Reference Range Interpretation Comments White Blood Count (test code = 6690-2) 11.44 4.8-10.8 H [facility] LakeRed Blood Dlosd5587-26-83 20:23:00* Test Item Value Reference Range Interpretation Comments Red Blood Count (test code = 789-8) 4.27 4.3-5.7 L [facility] LakeMean Corpuscular Robneb7587-54-21 20:23:00* Test Item Value Reference Range Interpretation Comments Mean Corpuscular Volume (test code = 787-2) 89.9 81-99 [facility] LakeMean Corpuscular Lipppxhmht3677-23-35 20:23:00* Test Item Value Reference Range Interpretation Comments Mean Corpuscular Hemoglobin (test code = 785-6) 30.0 28-32 [facility] LakeMean Corpuscular Hemoglobin Concent 2018-05-06 20:23:00* Test Item Value Reference Range Interpretation Comments Mean Corpuscular Hemoglobin Concent (test code = 786-4) 33.3 31-35 [facility] LakeRed Cell Distribution Twyya8414-17-83 20:23:00* Test Item Value Reference Range Interpretation Comments Red Cell Distribution Width (test code = 20088-7) 13.8 11.7 -14.4 [facility] LakePlatelet Hbhmu0044-78-17 20:23:00* Test Item Value Reference Range Interpretation Comments Platelet Count (test code = 777-3) 211 140-360 [facility] LakeNeutrophils (%) (Auto)2018-05-06 20:23:00 * Test Item Value Reference Range Interpretation Comments Neutrophils (%) (Auto) (test code = 46437-2) 46.2 38.7-80.0 [facility] LakeLymphocytes (%) (Auto)2018-05-06 20:23:00 * Test Item Value Reference Range Interpretation Comments Lymphocytes (%) (Auto) (test code = 736-9) 41.4 18.0-39.1 H [facility] LakeMonocytes (%) (Auto)2018-05-06 20:23:00* Test Item Value Reference Range Interpretation Comments Monocytes (%) (Auto) (test code = 5905-5) 7.8 4.4-11.3 [facility] LakeEosinophils (%) (Auto)2018-05-06 20:23:00 * Test Item Value Reference Range Interpretation Comments Eosinophils (%) (Auto) (test code = 713-8) 3.4 0.0-6.0 [facility] LakeBasophils (%) (Auto)2018-05-06 20:23:00* Test Item Value Reference Range Interpretation Comments Basophils (%) (Auto) (test code = 706-2) 1.0 0.0-1.0 [facility] LakeIM GRANULOCYTES %2018-05-06 20:23:00* Test Item Value Reference Range Interpretation Comments IM GRANULOCYTES % (test code = IM GRANULOCYTES %) 0.2 0.0- 1.0 [facility] LakeNeutrophils # (Auto)2018-05-06 20:23:00* Test Item Value Reference Range Interpretation Comments Neutrophils # (Auto) (test code = 751-8) 5.3 2.1-6.9 [facility] LakeLymphocytes # (Auto)2018-05-06 20:23:00* Test Item Value Reference Range Interpretation Comments Lymphocytes # (Auto) (test code = 11452-5) 4.7 1.0-3.2 H [facility] LakeMonocytes # (Auto)2018-05-06 20:23:00* Test Item Value Reference Range Interpretation Comments Monocytes # (Auto) (test code = 742-7) 0.9 0.2-0.8 H [facility] LakeEosinophils # (Auto)2018-05-06 20:23:00* Test Item Value Reference Range Interpretation Comments Eosinophils # (Auto) (test code = 711-2) 0.4 0.0-0.4 [facility] LakeBasophils # (Auto)2018-05-06 20:23:00* Test Item Value Reference Range Interpretation Comments Basophils # (Auto) (test code = 704-7) 0.1 0.0-0.1 [facility] LakeAbsolute Immature Granulocyte (auto 2018-05-06 20:23:00* Test Item Value Reference Range Interpretation Comments Absolute Immature Granulocyte (auto (braulio t code = Absolute Immature Granulocyte (auto) 0.02 0-0.1 [facility] LakeELECTROLYTES2018-04-19 16:31:003.8 [facility]annCHEM KDERQ0187-18-76 11:15:003.8[facility] HermannCHEM PANEL 2018-02-26 11:15:53421Izguiisx HermannCHEM HMWGY2956-59-64 11:15:007.8[facility] HermannCHEM MXQDF2370-77-80 11:15:000.62[facility]annCHEM YJVIC0733-71-78 11:15:0013[facility]annCHEM XGMZC7465-54-02 11:15:66344Lbemroam HermannCHEM UWWBB7554-82-46 11:15:0092[facility]annCHEM CUYJS8203-79-67 11:15:0013.0 [facility]annCHEM QGMCU0098-20-76 11:15:0024[facility] HermannCHEM PANEL 2018-02-26 11:15:85628Iqyuzfld HermannCHEM UTINC8541-94-64 11:15:003.0[facility] HermannCHEM ZYXXS2848-57-74 11:15:002.0[facility] BjyktjdNAXJFPRYDI5471-59-60 11:15:0023.0[facility] KcilbohEOFYSKRCPP4157-78-93 11:15:0013.5[facility] [place] NKEEKPIDXR8711-87-65 11:15:00* Test Item Value Reference Range Interpretation Comments MCH (test code = MCH) 34.4 pg 27.0-31.0 [facility] WzfthhpPDTXJULWES3063-71-95 11:15:0095.5[facility] HermannHEMATOLOGY 2018-02-26 11:15:80468Zkhfnxns JubgppbSEMNNTLEZU9091-61-77 11:15:0036.0[facility] JnsgbjsXKBWBWWUTR8535-93-03 11:15:008.5[facility] XupbwnbYUWROYCXHD1850-64-70 11:15:008.3[facility] XlftjuvPPYTPBYLRK3185-25-79 11:15:002.41[facility] [place] BMOXJUJIFF2931-49-05 11:15:007.2[facility] HnxyocnAJRCMAYHPK4453-48-85 11:15:00* Test Item Value Reference Range Interpretation Comments PTT (test code = PTT) 32.3 s 22.9-35.8 [facility] JpecbmlGDXIUSNMTA6449-93-95 11:15:00* Test Item Value Reference Range Interpretation Comments PT (test code = PT) 14.6 s 12.0-14.7 [facility] FflsauyKSGCRXAIIY8354-01-38 11:15:00* Test Item Value Reference Range Interpretation Comments INR (test code = INR) 1.14 1 0.85-1.17 [facility] JcnmxnbQBPQIXGEBL0131-71-24 11:15:0053.4[facility] HermannHEMATOLOGY 2018-02-26 11:15:0029.4[facility] MvkuwucKZKJSFHUQT5701-96-41 11:15:0012.3[facility] RicwbctONBWECATZB1727-00-07 11:15:000.3[facility] JthrteqIDQDHWTXFQ1514-49-42 11:15:000.9[facility] UpvtrnyWJZHDRPWPP8039-05-16 11:15:001.1[facility] HCBRIUAXQB0633-89-55 11:15:002.1[facility] TvcqeuqEHGGXMEUZT6436-73-17 11:15:003.8 [facility] VmvynhuAPMMACERHN8073-56-53 11:15:003.9[facility] HermannHEMATOLOGY 2018-02-26 11:15:000.1[facility] HermannPARATHYROID XWIWFNR9827-43-34 11:15:001.13 [facility] HermannPARATHYROID XCDYGLS8815-58-63 11:15:001.11[facility] KPVTRBLIFF2069-57-15 07:06:00* Test Item Value Reference Range Interpretation Comments INR (test code = INR) 1.14 1 0.85-1.17 [facility] MywraqoHITOIJMPKZ6550-32-28 07:06:00* Test Item Value Reference Range Interpretation Comments PTT (test code = PTT) 32.2 s 22.9-35.8 [facility] HpsbdrnGMAUYNIRBE1613-06-59 07:06:00* Test Item Value Reference Range Interpretation Comments PT (test code = PT) 14.6 s 12.0-14.7 [facility]annCHEM FKNHB6967-39-17 07:05:59981Qmjfktis HermannCHEM PANEL 2018-02-25 07:05:0014[facility] HermannCHEM ZMUPE5832-83-51 07:05:0016.2[facility] HermannCHEM BZVRA8837-59-21 07:05:59205Eslrjcip HermannCHEM WEMGB8408-89-49 07:05:007.0[facility] HermannCHEM IFPKP6435-03-00 07:05:003.2[facility] HermannCHEM HLPUW4379-70-10 07:05:0019[facility] HermannCHEM FJCZJ0914-57-12 07:05:90724 [facility]annCHEM TEYKE6697-06-44 07:05:000.52[facility] HermannCHEM PANEL 2018-02-25 07:05:0092[facility] HermannCHEM JMMQJ5147-29-61 07:05:001.9[facility] TileqjeDFEXRZAFSC7033-92-52 07:05:002.8[facility] KgkubiiLLJYLTGESL3888-88-98 07:05:000.8[facility] CqkvjkoEQCYPNVVQI4137-24-15 07:05:006.6[facility] JFEPXSTAOT9404-10-05 07:05:002.2[facility] HxgwtrzVGVHZKOTRL1261-15-91 07:05:000.2 [facility] SrqtvyqDSGFUQSZRH0997-22-94 07:05:000.1[facility] HermannHEMATOLOGY 2018-02-25 07:05:001.2[facility] CowksjgGUJXLUJWTQ6500-70-40 07:05:0060.3[facility] WcalfxdRKGDBMMJCV3501-15-15 07:05:0010.9[facility] CtqxlhwHXLACPIWHN8526-58-23 07:05:0025.8[facility] UsoznqtUCOXDAJKHF1365-22-69 07:05:0013.3[facility] [place] RDNRMIAJBV9203-50-38 07:05:73193Dblueiqa UhpqrmvQIBZUXIFRJ4240-91-78 07:05:008.8 [facility] UylcphgESSARBNZVL0764-37-22 07:05:008.8[facility]annHEMATOLOGY 2018-02-25 07:05:0035.4[facility] VqgktljPGCZDDLTCO3113-99-55 07:05:0024.9[facility] RtbdcztRCEVNUEFPD1306-14-96 07:05:00* Test Item Value Reference Range Interpretation Comments MCH (test code = MCH) 34.2 pg 27.0-31.0 [facility] LmxysgjCTAVOPBZMN1415-00-67 07:05:0096.6[facility]annHEMATOLOGY 2018-02-25 07:05:002.58[facility] PcrtozcIBCTFDVVEG3700-46-53 07:05:0010.9[facility] HermannPARATHYROID LGCQDNM1502-91-36 07:05:001.05[facility] HermannPARATHYROID ZTAOTGF4673-02-29 07:05:001.10[facility]annBLOOD BANK AHWHNVL5113-61-22 07:53:00Negative (02/24/18 2:53 AM)[facility]annCHEM DKJJY3032-23-87 07:53:00 1.8[facility] HermannCHEM MMJDN1467-28-35 07:53:43375Oeuolayb HermannCHEM PANEL 2018-02-24 07:53:000.61[facility] HermannCHEM UMYCI5826-15-89 07:53:87040Oiljmelc HermannCHEM FWYPP4424-24-60 07:53:04579Orpmcrla HermannCHEM EYUPT6712-57-77 07:53:0016[facility]annCHEM OFHLH3063-35-13 07:53:0020[facility]annCHEM TBXBA1674-60-56 07:53:007.9[facility] HermannCHEM KUVLB6401-34-73 07:53:38938 [facility]annCHEM NMARR4628-34-14 07:53:0015.8[facility] HermannCHEM PANEL 2018-02-24 07:53:002.3[facility] GofwafyHDNYOPONTZ0267-45-37 07:53:0023.4[facility] OobriicPDZMMZTJUY7261-35-21 07:53:0065.8[facility] HlzxgkoFGQUYMIKTZ2485-36-42 07:53:002.4[facility] RmqyjifNLPRPMHOSR1626-90-88 07:53:006.8[facility] KLNRRJRLCQ1837-41-00 07:53:001.0[facility] JhfzgexHOAGVFGIBI9303-54-50 07:53:000.7 [facility] TkimercQZJEAXCJXD9060-76-15 07:53:009.1[facility]annHEMATOLOGY 2018-02-24 07:53:000.1[facility] SwobuqnWXSGVZXILJ5226-58-76 07:53:000.1[facility] UrczzusSZDWVCPKAG0085-11-94 07:53:000.9[facility] DveahpnVUGDJKWKEV5484-65-77 07:53:00* Test Item Value Reference Range Interpretation Comments PTT (test code = PTT) 33.4 s 22.9-35.8 [facility] HmscseyYWUYANGKSZ1479-19-69 07:53:00* Test Item Value Reference Range Interpretation Comments INR (test code = INR) 1.16 1 0.85-1.17 [facility] RrjjarbHDAQCQBKCP4310-59-10 07:53:00* Test Item Value Reference Range Interpretation Comments PT (test code = PT) 14.9 s 12.0-14.7 [facility]fbqhpnODWLSNROLB6603-43-20 07:53:0013.7[facility]annHEMATOLOGY 2018-02-24 07:53:0034.1[facility] BooppdvJXBNWQXDTM6067-74-37 07:53:47868Fwrjsvbf LzduwxyJSFPHQWZFZ9090-11-80 07:53:009.5[facility] BylnmchYAPVCAMJWR5732-47-14 07:53:0010.3[facility] DphjnxeNTXBTMLXHU0504-94-98 07:53:002.55[facility] AQZLQQYYXB7425-92-58 07:53:00* Test Item Value Reference Range Interpretation Comments MCH (test code = MCH) 33.6 pg 27.0-31.0 [facility] XqfdnagSVGXTKOJOD5785-79-08 07:53:0098.5[facility]annHEMATOLOGY 2018-02-24 07:53:0025.2[facility] GnewvtpHHWMBSYTSG4692-23-69 07:53:008.6[facility] HermannPARATHYROID XYOAIWR2161-45-03 07:53:001.05[facility] HermannPARATHYROID EZYQJLC6622-55-93 07:53:001.02[facility]annCHEM BQOHX1038-12-01 07:33:001.9 [facility]annCHEM WGEBU9553-09-15 07:33:003.4[facility]annCHEM PANEL 2018-02-23 07:33:00* Test Item Value Reference Range Interpretation Comments A/G Ratio (test code = A/G Ratio) 0.8 1 0.7-1.6 [facility]annCHEM JOMDF9782-04-42 07:33:000.8[facility]annCHEM PANEL 2018-02-23 07:33:001.3[facility] HermannCHEM ACEBH4692-24-38 07:33:000.5[facility]annCHEM EGBGQ0114-19-17 07:33:002.6[facility]annCHEM TXHLR9958-89-31 07:33:006.0[facility]annCHEM DLRBC1842-43-00 07:33:0063[facility]annCHEM JASHX9619-29-50 07:33:0082[facility]annCHEM PVTIN1449-93-47 07:33:0053 [facility]annCHEM ZQYCP3878-98-39 04:31:001.2[facility]annCHEM PANEL 2018-02-21 17:58:002.9[facility]annBLOOD BANK XASHQNG2700-71-89 12:59:00 Product available (02/21/18 7:59 AM)[facility]annBL[facility] B[facility] HWVTZSP0196-83-99 12:58:00Product available (02/21/18 7:58 AM)[facility]annBL[facility] BANK RESULTS 2018-02-21 04:12:00Product available (02/20/18 11:12 PM)[facility]BL[facility] B[facility] TVPKZZV8700-10-32 03:08:00Negative (02/20/18 10:08 PM)[facility] EUKWFAEKFE9109-11-36 00:40:00* Test Item Value Reference Range Interpretation Comments PTT (test code = PTT) 189.0 s 22.9-35.8 [facility] QsujihpVWZCLGZIVF3530-63-41 00:40:00* Test Item Value Reference Range Interpretation Comments INR (test code = INR) 1.32 1 0.85-1.17 [facility] QzwqafxOABWLHOCCG7454-15-19 00:40:00* Test Item Value Reference Range Interpretation Comments PT (test code = PT) 16.5 s 12.0-14.7 [facility] CwuxdddDJPOEPNMGN7283-64-24 00:40:009.3[facility]annHEMATOLOGY 2018-02-21 00:40:47711Fllympvg MwkpxevCGTFDXZUNH8119-50-97 00:40:0013.6[facility] KmfydzlAMSYBSVUPC7667-21-19 00:40:0034.8[facility] CwxmmjoELDBZMLMRH9816-24-81 00:40:0095.6[facility] FcgcfcyAOBSPKTRYK1551-73-83 00:40:00* Test Item Value Reference Range Interpretation Comments MCH (test code = MCH) 33.2 pg 27.0-31.0 [facility] WjextvyKZHZYMRAMY6843-40-78 00:40:004.44[facility]annHEMATOLOGY 2018-02-21 00:40:0042.4[facility] PjccwziTUASEKDSHE0120-71-98 00:40:0014.8[facility] DhbacwwTZGWETWBIC4973-79-61 00:40:0011.0[facility] BkhwxvnHGYYXCVVRM0259-84-89 00:40:0050.9[facility] BwilqkdASLEGYYPTV3605-54-24 00:40:0036.5[facility] DSQTPOAPEV7749-34-74 00:40:007.7[facility] ZcpgtquZPLTWHGEKS1668-35-11 00:40:003.5 [facility] FzwkdfnFCZRXKSLRH7129-35-94 00:40:000.2[facility] HermannHEMATOLOGY 2018-02-21 00:40:000.4[facility] EsyyzjjHKSBAEPJWD4710-32-73 00:40:000.8[facility] VtvwfbzFJWQSUBPWM8279-91-22 00:40:004.0[facility] MhloyceQNBKDDZPJC7040-05-84 00:40:005.6[facility] LrqujdzQBDFYXHGZU2027-87-26 00:40:001.4[facility] [place] BACTERIAL - YSPUABPC6597-08-06 20:04:00Negative (02/20/18 3:04 PM)[facility] HermannCARDIAC CUFGXSA3734-76-13 15:53:34322Hqgzrwhm HermannCARDIAC ENZYMES 2018-02-20 15:53:001.1[facility] HermannCARDIAC EXNVDDQ4733-72-99 15:53:00* Test Item Value Reference Range Interpretation Comments CK MB Index (test code = CK MB Index) 0.9 1 <=2.5 [facility]annCARDIAC MZNPHHL1801-06-69 15:53:000.62[facility]annCHEM PANEL 2018-02-20 15:53:0095[facility] HermannCHEM XSSNY9743-98-42 15:53:00* Test Item Value Reference Range Interpretation Comments B/C Ratio (test code = B/C Ratio) 16 1 6-25 [facility]annCHEM COLBD1385-12-54 15:53:001.0[facility]annCHEM PANEL 2018-02-20 15:53:0013.1[facility] HermannCHEM SRVOZ4443-94-99 15:53:00* Test Item Value Reference Range Interpretation Comments A/G Ratio (test code = A/G Ratio) 0.8 1 0.7-1.6 [facility]annCHEM XWBGW0138-06-35 15:53:004.8[facility] HermannCHEM PANEL 2018-02-20 15:53:04126Vuukrcst HermannCHEM XUKGS8153-24-50 15:53:003.9[facility] HermannCHEM AQAZD5614-56-17 15:53:0085[facility]annCHEM OAROI1826-11-43 15:53:93789Rffffkwg HermannCHEM IWDOL9153-61-00 15:53:24325Uwypzumh HermannCHEM MMANL8345-22-30 15:53:0025[facility]annCHE[facility] KDSZI1941-22-24 15:53:009.3 [facility] ABOBC3268-72-89 15:53:008.7[facility]annCHEM PANEL 2018-02-20 15:53:000.90[facility]annCHE[facility] AEHUJ4738-07-16 15:53:02598Lkaypbrb HermannCHEM QWUJW4860-04-55 15:53:004.1[facility]annCHE[facility] UTKWE1851-81-52 15:53:0014[facility]annCHEM PFGKP8661-73-80 15:53:91322Jmrsvuyp Michele TTWVGOFGSE3630-64-96 15:53:009.2[facility] VyocbjjFNDOGPEJME4594-09-88 15:53:40266 [facility] KdkrpgjCIBIXBSJFW6895-49-54 15:53:004.73[facility]annHEMATOLOGY 2018-02-20 15:53:0094.9[facility] KfxkqasFNCJRBLMXI4033-28-33 15:53:0044.9[facility] QqwyzajORWESPDGCU0094-85-84 15:53:0013.7[facility] EibphblJZHIHOPXSM4658-23-84 15:53:0036.6[facility] KtnrzwmPTBTASWQOM9575-22-62 15:53:0010.7[facility] MCWUOFMKBW5187-83-30 15:53:0016.4[facility] KpvsivjFEYOEVHYFK1653-02-19 15:53:00* Test Item Value Reference Range Interpretation Comments MCH (test code = MCH) 34.7 pg 27.0-31.0 [facility] BfsllntEBFASJRQYM9694-38-36 15:53:001.4[facility]annHEMATOLOGY 2018-02-20 15:53:006.1[facility] AbtmrphGXCSNRFAXC6547-89-57 15:53:003.4[facility] BhggcrkHBYNEYSKEM2915-01-78 15:53:000.8[facility] EgixgnlSGTDLMEUXM3586-65-26 15:53:000.4[facility] KklseruOJPUZZQCON5862-90-35 15:53:000.1[facility] ZSPUUJGECF8372-56-60 15:53:007.1[facility] HlflblrPIFOJCTVDI0954-40-66 15:53:00 56.6[facility] KpaliqoBVFSSNOOQF5436-05-48 15:53:0031.6[facility] 2018-02-20 15:53:003.3[facility] ImlfkoxRJPXDDXGYU8549-36-30 15:53:00* Test Item Value Reference Range Interpretation Comments INR (test code = INR) 1.14 1 0.85-1.17 [facility]Xbr[facility]sscPGMXJPHDFV7922-60-32 15:53:00* Test Item Value Reference Range Interpretation Comments PTT (test code = PTT) 28.5 s 22.9-35.8 [facility]YL[facility]FG8025[facility]-67 15:53:00* Test Item Value Reference Range Interpretation Comments PT (test code = PT) 14.6 s 12.0-14.[address] [facility] [place]
--- NOTE | 2020-06-16 15:50 | NUR ---
Called [facility] for transport to [address]
--- NOTE | 2020-06-16 15:57 | NUR ---
Report called to YUNIER Waters
--- NOTE | 2020-06-16 16:45 | NUR ---
RECD PT FROM [facility] VIA STRETCHER,AAOX3,DENIES LITTLE,C/O BI BLEED,IV TO RT WRIST 18 G,LT AC 18 G PATENT.
[2020-06-16 17:25] VITALS: BP 112/63
[2020-06-16] MEDS: SODIUM CHLORIDE 0.9% 1000ML 1,000 ML IV SCH (17:30)
[2020-06-16 17:51] LABS: BASOPHILS # (AUTO) 0.2 (0.0-0.1); EOSINOPHILS # (AUTO) 0.2 (0.0-0.4); EOSINOPHILS % 1.2 % (0.0-6.0); HEMATOCRIT 24.2 % (38.2-49.6); HEMOGLOBIN 7.9 g/dL (14.0-18.0); LYMPHOCYTES # (AUTO) 4.4 (1.0-3.2); LYMPHOCYTES % 28.6 % (18.0-39.1); MEAN CORPUSCULAR HEMOGLOBIN 34.2 pg (28-32); MEAN CORPUSCULAR HGB CONC 32.6 g/dL (31-35); MEAN CORPUSCULAR VOLUME 104.8 fL (81-99); MONOCYTES # (AUTO) 1.2 (0.2-0.8); MONOCYTES % 8.1 % (4.4-11.3); NEUTROPHILS # (AUTO) 9.3 (2.1-6.9); NEUTROPHILS % 60.4 % (38.7-80.0); PLATELET COUNT 153 x10e3/uL (140-360); RED BLOOD COUNT 2.31 x10e6/uL (4.3-5.7)
[2020-06-16] MEDS: PANTOPRAZOLE 40 MG 10ML VIAL IV SCH (18:00)
[2020-06-16 18:02] LABS: PARTIAL THROMBOPLASTIN TIME 31.6 seconds (23.8-35.5)
[2020-06-16 18:35] LABS: INR 1.47; PROTHROMBIN TIME 18.7 seconds (11.9-14.5)
[2020-06-16 18:42] LABS: ALANINE AMINOTRANSFERASE 71 IU/L (0-55); ALBUMIN 2.4 g/dL (3.5-5.0); ALBUMIN/GLOBULIN RATIO 0.8 (0.8-2.0); ALKALINE PHOSPHATASE 85 IU/L (40-150); ANION GAP 10.8 mmol/L (8-16); BLOOD UREA NITROGEN 13 mg/dL (7-26); BUN/CREATININE RATIO 13 (6-25); CALCIUM 7.6 mg/dL (8.4-10.2); CARBON DIOXIDE 15 mmol/L (22-29); CHLORIDE 115 mmol/L (98-107); CREATININE, SERUM 1.02 mg/dL (0.72-1.25); EST GLOMERULAR FILTRATION RATE > 60 ML/MIN (60-); GLUCOSE 119 mg/dL (74-118); POTASSIUM 4.8 mmol/L (3.5-5.1); SODIUM 136 mmol/L (136-145)
--- NOTE | 2020-06-16 18:46 | NUR ---
IVF STARTED ,TELE IN PLACE NSR 99,DENIES PAIN,DR CORDOVA SPOKE WITH PT .DR Lucia BELLAMY NOTIFIED OF PT ADMIT,
--- NOTE | 2020-06-16 19:16 | NUR ---
SPOKE WITH DR BELLAMY ORDERS WRITTEN
[2020-06-16 20:00] VITALS: BP 96/49
--- NOTE | 2020-06-16 20:00 | NUR ---
Received change of shift report from AM nurse.
[2020-06-16 20:18] LABS: EOSINOPHILS % (MANUAL) 2 % (0-7); HYPOCHROMASIA SLIGHT; LYMPHOCYTES % (MANUAL) 10 % (19-48); MONOCYTES % (MANUAL) 4 % (3.4-9.0); NEUTROPHILS % (MANUAL) 79 % (40-74); PLATELET ESTIMATE ADEQUATE; PLATELET MORPHOLOGY COMMENT NORMAL; RBC MORPHOLOGY COMMENT NORMAL
[2020-06-16 21:31] VITALS: BP 112/63
[2020-06-16] MEDS ORDERED: PHYTONADIONE 10 MG/ML AMP SQ ONE (22:45)
--- NOTE | 2020-06-16 23:00 | NUR ---
Patient to get a blood transfusion. Consent signed, verified order and blood picked up and started.
[2020-06-16] MEDS ORDERED: SODIUM CHLORIDE 0.9% 250ML 250 ML ONE (23:42)
[2020-06-17] VITALS (8 sets, daily range): BP systolic 97–130; BP diastolic 49–70
[2020-06-17] MEDS: SODIUM CHLORIDE 0.9% 1000ML 1,000 ML IV SCH ×3 (01:15→17:15)
--- NOTE | 2020-06-17 01:29 | NUR ---
Patient tolerating blood transfusion. No S&S noted. Patient resting quitly at this time. Continue monitor. See blood transfusion sheet for details of vitals.
--- NOTE | 2020-06-17 03:12 | NUR ---
Patient completed first unit of blood with no reaction. Vitals wnl for patient. Lasix 20mg given as ordered by MD after first unit completed. Start second unit of blood.
--- NOTE | 2020-06-17 05:39 | NUR ---
Glo plt. running straight in. Patient tolerating well. No reaction noted.
[2020-06-17 07:47] LABS: BASOPHILS # (AUTO) 0.1 (0.0-0.1); BASOPHILS % 0.8 % (0.0-1.0); EOSINOPHILS # (AUTO) 0.3 (0.0-0.4); EOSINOPHILS % 3.3 % (0.0-6.0); HEMATOCRIT 24.8 % (38.2-49.6); HEMOGLOBIN 8.2 g/dL (14.0-18.0); MEAN CORPUSCULAR HEMOGLOBIN 32.7 pg (28-32); MEAN CORPUSCULAR HGB CONC 33.1 g/dL (31-35); MEAN CORPUSCULAR VOLUME 98.8 fL (81-99); MONOCYTES % 12.9 % (4.4-11.3); NEUTROPHILS # (AUTO) 3.6 (2.1-6.9); NEUTROPHILS % 44.6 % (38.7-80.0); PLATELET COUNT 119 x10e3/uL (140-360); RED BLOOD COUNT 2.51 x10e6/uL (4.3-5.7); RED CELL DISTRIBUTION WIDTH 16.1 % (11.7-14.4)
[2020-06-17 08:08] LABS: ALANINE AMINOTRANSFERASE 60 IU/L (0-55); ALBUMIN 2.2 g/dL (3.5-5.0); ALBUMIN/GLOBULIN RATIO 0.8 (0.8-2.0); ALKALINE PHOSPHATASE 77 IU/L (40-150); ANION GAP 11.2 mmol/L (8-16); BLOOD UREA NITROGEN 14 mg/dL (7-26); BUN/CREATININE RATIO 18 (6-25); CALCIUM 7.4 mg/dL (8.4-10.2); CARBON DIOXIDE 18 mmol/L (22-29); CHLORIDE 112 mmol/L (98-107); EST GLOMERULAR FILTRATION RATE > 60 ML/MIN (60-); GLUCOSE 120 mg/dL (74-118); POTASSIUM 4.2 mmol/L (3.5-5.1); SODIUM 137 mmol/L (136-145)
--- NOTE | 2020-06-17 11:06 | NUR ---
bleeding scan complete
--- NOTE | 2020-06-17 11:34 | Diagnostic Imaging Report ---
Tagged-RBC GI Bleed Study Clinical information: 59-year-old male with dark red stools x 24 hours and anemia. Patient stopped taking anticoagulant 2 days ago. Received 2 units packed RBCs yesterday. Discussion: The patient's own red blood cells were labeled with 26 mCi of technetium-99m pertechnetate using the in vitro method (UltraTag). Dynamic images of the abdomen were obtained through 60 minutes. Distribution of tracer activity appears physiologic throughout the abdomen. No abnormal accumulation of tracer is seen within the gastrointestinal lumen. Impression: No scan evidence of active gastrointestinal bleeding at this time. Signed by: Dr. Rebecca Tamez M.D. on 06/17/2020 11:30 AM
[2020-06-17 12:03] LABS: HEMATOCRIT 26.9 % (38.2-49.6)
--- NOTE | 2020-06-17 13:10 | NUR ---
SPOKE W/ SRenuka MENDOZA RN AND DR. ORNELAS. PATIENT STOOLS ARE NOW NORMAL IN APPEARANCE. HE HAS HAD BLOOD TRANSFUSIONS. PLAN IS TO DC TOMORROW.
--- NOTE | 2020-06-17 17:47 | NUR ---
patient drinking well. does not want fluids.
[2020-06-17] MEDS: PANTOPRAZOLE 40 MG 10ML VIAL IV SCH (18:09)
--- NOTE | 2020-06-17 18:45 | History and Physical ---
HISTORY OF PRESENT ILLNESS: The patient is a 59-year-old male with past medical history positive for coronary artery disease, hypertension, came here with rectal bleeding after he underwent polypectomy done by Dr. Adis Castellano. Rectal bleeding stopped. Blood count stable. REVIEW OF SYSTEMS: CARDIOVASCULAR: No chest pain or palpitation. RESPIRATORY: No shortness of breath. No cough. GASTROINTESTINAL: No nausea or vomiting. No diarrhea. GENITOURINARY: No frequency or dysuria. ALLERGIES: NOT ALLERGIC TO ANYTHING. SOCIAL HISTORY: He does not smoke, does not drink. PAST MEDICAL HISTORY: Positive for coronary artery disease status post CABG, hypertension, and hyperlipidemia. PHYSICAL EXAMINATION: HEART: Regular rhythm. Normal S1, S2 sound. LUNGS: Clear bilaterally. ABDOMEN: Soft. No hepatomegaly. EXTREMITIES: Show no edema. VITAL SIGNS: Blood pressure 130/66, temperature 37.6, heart rate 93 per minute, respiratory rate 20 per minute, oxygen saturation 100%. LABORATORY DATA: On the CBC; white count 7.93, hemoglobin 9.0, hematocrit 26.9, platelet count 518,000. On the BMP; sodium 137, potassium 4.2, chloride 112, carbon dioxide 18, BUN 14, creatinine 0.80, glucose 120, calcium 7..4, total bilirubin 1.5, AST 87, ALT 60, alkaline phosphatase 77, total protein 4.9, albumin 2.2. Coronavirus test is pending. GI bleeding scan, no evidence of any active bleeding at this time. IMPRESSION: 1. Rectal bleeding status post polypectomy. 2. Acute anemia secondary to the polypectomy. 3. Hypertension. 4. Coronary artery disease with CABG. 5. Obesity. 6. Hyperlipidemia. TREATMENT AND PLAN: Continue to monitor hemoglobin and hematocrit. Tentative discharge tomorrow, if okay with Dr. Adis Castellano as well as if his hemoglobin, hematocrit remain stable. He is taking normal saline 125 mL an hour. He is on Benadryl 25 mg IV as needed for itching. Continue Zofran 4 mg q.4 hours as needed. Continue Protonix 40 mg IV once a day. We are going to hold aspirin for now. He is on Lipitor. We are going to hold on the Plavix also. Continue metoprolol 25 mg daily, Benicar 5 mg daily, and Protonix is going to be placed on hold because he is on IV Protonix also. Tentative discharge tomorrow. MD OLIMPIA Serrano/KAILEY /[id number]
[2020-06-17] MEDS ORDERED: ATORVASTATIN 40 MG TAB PO SCH (21:00)
[2020-06-17] MEDS ORDERED: ATORVASTATIN 20 MG TAB PO SCH (21:00)
[2020-06-18] VITALS: BP 114/50
[2020-06-18] MEDS: SODIUM CHLORIDE 0.9% 1000ML 1,000 ML IV SCH (01:15)
[2020-06-18 01:20] LABS: HEMOGLOBIN 8.4 g/dL (14.0-18.0)
[2020-06-18 04:00] VITALS: BP 101/56
[2020-06-18 08:11] LABS: ALANINE AMINOTRANSFERASE 73 IU/L (0-55); ALBUMIN 2.5 g/dL (3.5-5.0); ALBUMIN/GLOBULIN RATIO 0.7 (0.8-2.0); ALKALINE PHOSPHATASE 93 IU/L (40-150); ANION GAP 10.2 mmol/L (8-16); BLOOD UREA NITROGEN 12 mg/dL (7-26); BUN/CREATININE RATIO 16 (6-25); CALCIUM 7.8 mg/dL (8.4-10.2); CARBON DIOXIDE 20 mmol/L (22-29); CHLORIDE 109 mmol/L (98-107); CREATININE, SERUM 0.74 mg/dL (0.72-1.25); EST GLOMERULAR FILTRATION RATE > 60 ML/MIN (60-); GLUCOSE 129 mg/dL (74-118); POTASSIUM 4.2 mmol/L (3.5-5.1); SODIUM 135 mmol/L (136-145)
[2020-06-18 09:00] LABS: HEMATOCRIT 27.3 % (38.2-49.6); HEMOGLOBIN 9.2 g/dL (14.0-18.0)
[2020-06-18] MEDS ORDERED: METOPROLOL TARTRATE 25 MG TAB PO SCH (09:00)
[2020-06-18] MEDS ORDERED: OLMESARTAN MEDOXOMIL 5 MG TABLET PO SCH (09:00)
[2020-06-18] MEDS ORDERED: OLMESARTAN 20 MG TAB PO SCH (09:00)
[2020-06-18] MEDS ORDERED: METOPROLOL TARTRATE 50 MG TAB PO SCH (09:00)
[2020-06-18 09:05] VITALS: BP 125/74
[2020-06-18 10:02] VITALS: BP 125/74
[2020-06-18 12:26] VITALS: BP 96/56
--- NOTE | 2020-06-18 23:50 | Discharge Summary ---
HOSPITAL COURSE: A 59-year-old male, past medical history positive for coronary artery disease, hypertension, history of obesity, and hyperlipidemia, came to the hospital because after polypectomy, he is having some rectal bleeding. Hemoglobin is stabilized at 9.2. The patient is completely asymptomatic. The patient was off the Plavix and aspirin. He was going to restart the aspirin. The patient had a CABG need to start the Plavix if he has not had a stent. The patient is going to be discharged home to instruction to follow up with Dr. Adis Castellano for Gastroenterology and Dr. Cox for Cardiology. PHYSICAL EXAMINATION: HEART: Showed regular rhythm. Normal S1 and S2 sound. LUNGS: Clear bilaterally. ABDOMEN: Soft. EXTREMITIES: Show no edema. FINAL IMPRESSION: 1. Rectal bleeding secondary to polypectomy. 2. Hypertension. 3. Coronary artery disease, status post coronary artery bypass grafting. 4. Acute anemia. 5. Obesity. 6. Hyperlipidemia. PLAN OF TREATMENT: On discharge, he is going to continue Lipitor 40 mg daily. Continue metoprolol 25 mg daily. Continue Benicar 5 mg daily and Protonix 40 mg p.o. twice a day. He is going to continue aspirin 81 mg daily. Follow up with Dr. Cox, Cardiology and follow up with Dr. Adis Castellano for Gastroenterology. MD OLIMPIA Serrano/KAILEY /[id number]
== END 2020-06-18 13:26 | disposition home or self-care (01) | DRG 919 ==
LOC: FSED 13:40 → ERHOLD 15:42 → MED/SURG 16:51
PROC: 30233N1 Transfusion of Nonautologous Red Blood Cells into Peripheral Vein, Percutaneous Approach (ICD-10-PCS; 2020-06-16)
PROC: 30233R1 Transfusion of Nonautologous Platelets into Peripheral Vein, Percutaneous Approach (ICD-10-PCS; principal; 2020-06-17)
DX: K91.840 Postprocedural hemorrhage of a digestive system organ or structure following a digestive system procedure (principal); R57.8 Other shock; D62 Acute posthemorrhagic anemia; I10 Essential (primary) hypertension; E78.5 Hyperlipidemia, unspecified; I25.10 Atherosclerotic heart disease of native coronary artery without angina pectoris; E66.9 Obesity, unspecified; Z98.890 Other specified postprocedural states; Z95.1 Presence of aortocoronary bypass graft; Z86.010 Personal history of colon polyps; Z79.01 Long term (current) use of anticoagulants; Z68.31 Body mass index [BMI] 31.0-31.9, adult; Z11.59 Encounter for screening for other viral diseases
CPT/HCPCS: 36415; 78278; 80053; 82270; 85014; 85018; 85025; 85610; 85730; 86850; 86900; 86920; 99284; A9512; J1200; J1940; J2405; J3430; J7030; J7050; P9016; P9034; U0002

== ENCOUNTER → 2020-07-18 | Outpatient (CLI) | payer OTHER ==
--- NOTE | 2020-07-18 08:35 | Diagnostic Imaging Report ---
Right upper quadrant ultrasound. Clinical History: Hepatitis C Comparison: None Findings: Transverse and longitudinal imaging of the right upper quadrant. The caudate lobe of the liver is enlarged and has a slightly nodular contour. The liver is otherwise normal in size and appearance measuring 13.7 cm. No focal liver mass is seen. 0.5 cm echogenic lesion without shadowing or vascularity in the gallbladder could be due to a small nonshadowing gallstone. The gallbladder is otherwise unremarkable in appearance. The gallbladder wall measures 0.3 cm. The sonographic Coleman sign is negative. The common bile duct measures 0.3 cm. There is no biliary ductal dilatation. No free fluid in Cason's pouch. Right kidney is normal in appearance without mass, hydronephrosis, or stone measuring 11.2 cm. The pancreas and abdominal aorta are not well seen due to overlying bowel gas. The inferior vena cava is unremarkable. The main portal vein is normal in appearance measuring 0.9 cm with normal blood flow. Impression: Enlarged caudate lobe of the liver with slightly nodular contour. The liver is otherwise unremarkable in appearance. No focal liver mass is seen. 0.5 cm echogenic lesion without shadowing or vascularity in the gallbladder could be due to a small nonshadowing gallstone. Signed by: Dr. Tommie Srinivasan M.D. on 07/18/2020 8:31 AM
== END ==
LOC: US 07:41
PROVIDERS: ATTEND Internal Medicine Gastroenterology
DX: B19.20 Unspecified viral hepatitis C without hepatic coma (principal)
CPT/HCPCS: 76705

== ENCOUNTER 2023-02-10 14:06 | Emergency (ER) | payer BC, OTHER ==
[~2023-02-10] VITALS: Ht 170.2 cm; Wt 80.0 kg
[2023-02-10] MEDS ORDERED: CLOPIDOGREL75 MG PO (14:33)
[2023-02-10] MEDS ORDERED: MOMETASONE FURO15 G1 (14:33)
[2023-02-10] MEDS ORDERED: METFORMIN HCL500 MG PO (14:33)
[2023-02-10] MEDS ORDERED: PREDNISONE50 MG PO (17:11)
[2023-02-10] MEDS ORDERED: PREDNISONE 20 MG TAB ONE (17:14)
[2023-02-10] MEDS ORDERED: PREDNISONE 20 MG TAB PO ONE (17:15)
== END 2023-02-10 17:19 | disposition home or self-care (01) ==
LOC: FSED 14:09
DX: M79.661 Pain in right lower leg (principal); M54.31 Sciatica, right side; I10 Essential (primary) hypertension; E78.5 Hyperlipidemia, unspecified; I25.10 Atherosclerotic heart disease of native coronary artery without angina pectoris; E11.9 Type 2 diabetes mellitus without complications; B19.20 Unspecified viral hepatitis C without hepatic coma; Z95.1 Presence of aortocoronary bypass graft; F17.210 Nicotine dependence, cigarettes, uncomplicated
CPT/HCPCS: 93971 ×2; 99283; J7512

== ENCOUNTER 2023-03-17 14:11 | Emergency (ER) | payer BC ==
[~2023-03-17] VITALS: Ht 170.2 cm; Wt 79.8 kg
[~2023-03-17 14:11] MED LIST changes: +METFORMIN HCL500 MG PO; +MOMETASONE FURO15 G1; +PREDNISONE50 MG PO
[2023-03-17] MEDS ORDERED: GABAPENTIN300 MG PO (15:04)
[2023-03-17 15:13] VITALS: BP 152/80; PULSE 68; RESP 16; O2SAT 99
[2023-03-17] MEDS ORDERED: GABAPENTIN 300 MG CAP PO ONE (15:15)
[2023-03-17] MEDS ORDERED: HYDROCODONE/APAP 5MG-325MG TAB PO ONE (15:15)
== END 2023-03-17 15:45 | disposition home or self-care (01) ==
LOC: ER 14:24
DX: G62.9 Polyneuropathy, unspecified (principal); M79.604 Pain in right leg; I10 Essential (primary) hypertension; E11.9 Type 2 diabetes mellitus without complications; E78.5 Hyperlipidemia, unspecified; I25.10 Atherosclerotic heart disease of native coronary artery without angina pectoris; B19.20 Unspecified viral hepatitis C without hepatic coma; Z95.1 Presence of aortocoronary bypass graft; F17.210 Nicotine dependence, cigarettes, uncomplicated
CPT/HCPCS: 99282